=== PATIENT | female | born 1970 | race Caucasian/White ===

== ENCOUNTER 2017-07-09 20:32 | Emergency (ER) | payer BC, OTHER ==
[~2017-07-09] VITALS: Ht 157.5 cm; Wt 97.5 kg
[~2017-07-09 20:32] MED LIST: LISINOPRIL-HCTZ; MECL12.579 PO; TOPROL PO
--- OUTSIDE RECORDS SUMMARY | 2017-07-09 20:39 | XMS REPORT ---
Author Author AJ DUVAL Organization [employer] Address Unknown Phone Unavailable Care Team Providers Care Logistics Officer Name Role Phone MUKUND AJ CP Unavailable Allergies No Known Allergies Problems Problem Type Condition ICD-9 Code Onset Dates Condition Status Problem Special screening examination, human papillomavirus [HPV] V73.81 Active Problem Screening for malignant neoplasm of the cervix V76.2 Active Problem Unspecified breast screening V76.10 Active Problem Other and unspecified noninfectious gastroenteritis and colitis 558.9 Active Problem Other enthesopathy of ankle and tarsus 726.79 Active Problem Hypertension 401.9 Active Problem Unspecified labyrinthitis 386.30 Active Problem Essential hypertension, benign 401.1 Active Problem Dizziness and giddiness 780.4 Active Problem Hypopotassemia 276.8 Active Problem Problems related to lack of physical exercise V69.0 Active Problem Other malaise and fatigue 780.79 Active Assessment Generalized hyperhidrosis 780.8 Active Problem Mastodynia 611.71 Active Problem Obesity, unspecified 278.00 Active Problem Routine gynecological examination V72.31 Active Medications No Known Medications Procedures Procedure Coding System Code Date X-RAY EXAM OF FOOT CPT-4 70806 Jul 16, 2015 Office Visit, Est Pt., Level 3 CPT-4 98459 Jul 16, 2015 Vital Signs Date/Time: Jul 16, 2015 Blood Pressure Diastolic 80 mmHg Blood Pressure Systolic 140 mmHg Height 62 in Results Name Result Date Reference Range Unit Abnormality Flag Xray: Feet, Bilateral (IN HOUSE) Summary Purpose [employer] Submission
--- OUTSIDE RECORDS SUMMARY | 2017-07-09 20:39 | XMS REPORT ---
Author Author ANTHONY HOLLY [employer] Address Unknown Phone Unavailable Care Team Providers Care Micro Computer Specialist Name Role Phone ANTHONY HOLLY CP Unavailable Allergies, Adverse Reactions, Alerts Substance Reaction Event Type N.K.D.A. Info Not Available Non Drug Allergy Problems Problem Type Condition Code Onset Dates Condition Status Problem Essential hypertension, benign 401.1 Active Problem Hypopotassemia 276.8 Active Problem Unspecified labyrinthitis 386.30 Active Problem Knee pain M25.569 Active Problem Foot pain M79.673 Active Problem Essential hypertension I10 Active Problem Other enthesopathy of ankle and tarsus 726.79 Active Problem Dizziness and giddiness 780.4 Active Problem Hypertension 401.9 Active Problem Other and unspecified noninfectious gastroenteritis and colitis 558.9 Active Problem Obesity, unspecified 278.00 Active Problem Problems related to lack of physical exercise V69.0 Active Assessment Dental examination Z01.20 Active Problem Routine gynecological examination V72.31 Active Problem Special screening examination, human papillomavirus [HPV] V73.81 Active Problem Other malaise and fatigue 780.79 Active Problem Unspecified breast screening V76.10 Active Problem Mastodynia 611.71 Active Problem Screening for malignant neoplasm of the cervix V76.2 Active Medications Medication Code System Code Instructions Start Date End Date Status Dosage Marenisco [facility] [address]-88 5-325 MG Orally every 6 hrs Aug 03, 2016 Aug 07, 2016 1 tablet as needed Metoprolol Succinate ER [facility] 12473341099 50 MG TAKE ONE TABLET BY MOUTH DAILY Amoxicillin [facility] [address]-54 500 MG Orally every 8 hrs Aug 03, 2016 Aug 10, 2016 1 capsule Lisinopril-Hydrochlorothiazide [facility] [address]-45 20-12.5 MG Once a day May 07, 2014 take 1 tablet by Oral route 1 time per day Procedures Procedure Coding System Code Date INTRAORL-PERIAPICAL 1 FILM 12984 CPT-4 D0220 Aug 03, 2016 LTD ORAL EVALUATION - PROBLEM FOCUS CPT-4 D0140 Aug 03, 2016 Vital Signs Date/Time: Aug 03, 2016 Blood Pressure Diastolic 93 mmHg Blood Pressure Systolic 145 mmHg Height 62 in Results No Known Results Summary Purpose [employer] Submission
--- OUTSIDE RECORDS SUMMARY | 2017-07-09 20:39 | XMS REPORT ---
Author Author AJ DUVAL Organization [employer] Address Unknown Phone Unavailable Care Team Providers Care Civil Process Server Name Role Phone AJ DUVAL CP Unavailable Allergies No Known Allergies Problems Problem Type Condition Code Onset Dates Condition Status Problem Special [...] giddiness 780.4 Active Problem Hypopotassemia 276.8 Active Assessment Heel spur M77.30 Active Problem Problems related to lack of physical exercise V69.0 Active Problem Other malaise and fatigue 780.79 Active Assessment Tendonitis, Achilles, right M76.61 Active Problem Mastodynia 611.71 Active Problem Obesity, unspecified 278.00 Active Problem Routine gynecological examination V72.31 Active Medications No Known Medications Procedures Procedure Coding System Code Date Office Visit, Est Pt., Level 3 CPT-4 07722 Aug 27, 2015 Vital Signs Date/Time: Aug 27, 2015 Blood Pressure Diastolic 80 mmHg Blood Pressure Systolic 130 mmHg Height 62 in Results No Known Results Summary Purpose [employer] Submission
[2017-07-09] MEDS ORDERED: LISI1TAB8 (20:50)
[2017-07-09] MEDS ORDERED: MELO15TA39 (20:50)
[2017-07-09] MEDS ORDERED: RX-TRIMETH/SULFA. 160-800 MG (BACTRIM DS) TAB PPK#2 PO STA (20:58)
[2017-07-09] MEDS ORDERED: SULF1TAB35 PO (21:01)
--- NOTE | 2017-07-09 21:01 | ED Integumentary General ---
General Chief Complaint: Skin/Wound Problems Stated Complaint: BUMP ON ABDOMEN Nursing Triage Note: c/o 'blood blister' on LLQ Source: patient History of Present Illness Time seen by provider: 20:50 Initial Comments C/O "BLOOD BLISTER" TO LEFT LOWER ABDOMEN--NOTICED JUST PRIOR TO ARRIVAL AND "FREAKED OUT" PT DENIES ANY KNOWN INJURY, BITE, ETC. TO AREA COMPLETELY ASYMPTOMATIC FROM IT. NO HISTORY OF SIMILAR NO EXCESSIVE BRUISING, BLEEDING, ETC FROM ANYWHERE ELSE PCP; [facility] Allergies and Home Medications Allergies Coded Allergies: No Known Drug Allergies (Unverified , 05/03/13) Home Medications Lisinopril/Hydrochlorothiazide 1 Each Tablet, (Reported) Meloxicam 15 Mg Tablet, (Reported) Sulfamethoxazole/Trimethoprim 1 Each Tablet, 1 EACH PO BID, #20 Prescribed by: GEORGETTE CATALAN on 07/09/172100 Constitutional: no symptoms reported Musculoskeletal: no symptoms reported Skin: see HPI Psychiatric/Neurological: No Symptoms Reported Past Pppudqt-Acnxhm-Lldjwz Hx Patient Social History Alcohol Use: Denies Use Recreational Drug Use: No Recent Foreign Travel: No Contact w/Someone Who Travel: No Recent Infectious Disease Expo: No Immunizations Up To Date Tetanus Booster (TDap): Unknown Date of Influenza Vaccine: Sep 05, 2013 Seasonal Allergies Seasonal Allergies: No Surgeries History of Surgeries: Yes (BILATERAL HERNIA REPAIR AGE 3; X 2) Surgeries: Abdominal, Section, Gallbladder, Orthopedic Respiratory History of Respiratory Disorde: No Cardiovascular History of Cardiac Disorders: Yes Cardiac Disorders: Hypertension Neurological History of Neurological Disord: Yes Neurological Disorders: Vertigo Reproductive System Female Reproductive Disorders: Denies Genitourinary History of Genitourinary Disor: No Gastrointestinal History of Gastrointestinal Di: Yes Gastrointestinal Disorders: Gastroesophageal Reflux, Hiatal Hernia Musculoskeletal History of Musculoskeletal Dis: No Endocrine History of Endocrine Disorders: No Cancer History of Cancer: No Psychosocial History of Psychiatric Problem: No Integumentary History of Skin or Integumenta: No Blood Transfusions History of Blood Disorders: No Family Medical History Significant Family History: No Pertinent Family Hx Physical Exam Vital Signs Vital Sign - Last 12Hours 07/09/17 20:46 Temp 97.8 Pulse 87 Resp 18 B/P (MAP) 148/79 Pulse Ox 98 Capillary Refill : Less Than 3 Seconds General Appearance: WD/WN, no apparent distress, obese Cardiovascular: regular rate, rhythm Respiratory: normal breath sounds Gastrointestinal: non tender, soft Neurologic/Psychiatric: no motor/sensory deficits, alert, normal mood/affect Skin: normal color, warm/dry, other (LEFT LOWER ABDOMEN WITH 1 CM "BLOOD BLISTER" --BLISTER IS INTACT BUT VERY FLACCID. HAS A 3 CM SURROUNDING AREA /RIM OF MARKED ERYTHEMA TO SURROUNDING SKIN WITH FAIRLY DISCRETE BORDERS, VERY CIRCULAR. NO INDURATION. NON-TENDER. NO DRAINAGE. NO STREAKS. ) Progress/Results/Core Measures Results/Orders My Orders Orders - GEORGETTE CATALAN DO Rx-Trimeth/Sulfameth Ds Tab (Rx-Bactrim/ (07/09/17 20:58) Vital Signs/I&O Vital Sign - Last 12Hours 07/09/17 07/09/17 20:46 21:06 Temp 97.8 97.8 Pulse 87 87 Resp 18 18 B/P (MAP) 148/79 Pulse Ox 98 98 Blood Pressure Mean: 102 Departure Impression Impression: Primary Impression: Blood blister Disposition: 01 HOME, SELF-CARE Condition: Stable Departure-Patient Inst. Referrals: [facility] (PCP) Primary Care Physician ALEXA FLORES (Family) Primary Care Physician Patient Instructions: Blisters, Cellulitis (Skin Infection), Adult (DC), Wound Care (DC) Add. Discharge Instructions: IF BLISTER RUPTURES, CLEAN TWICE A DAY WITH ANTIBACTERIAL SOAP AND WATER, APPLY TRIPLE ANTIBIOTIC AND FRESH DRESSING TYLENOL AND MOTRIN NEEDED FOR PAIN FOLLOW UP WITH [facility] NEEDED All discharge instructions reviewed with patient and/or family. Voiced understanding. Scripts Sulfamethoxazole/Trimethoprim (Bactrim Ds Tablet) 1 Each Tablet 1 EACH PO BID, #20 TAB Prov: GEORGETTE CATALAN DO 07/09/17 Images Torso/Trunk 1 - GEORGETTE CATALAN DO Jul 09, 2017 21:01
[2017-07-09 21:06] VITALS: BP 148/79
== END 2017-07-09 21:05 | disposition home or self-care (01) ==
LOC: EDUNIT# 20:32 → ER 20:35
DX: R23.8 Other skin changes (principal); K21.9 Gastro-esophageal reflux disease without esophagitis; I10 Essential (primary) hypertension; Z87.59 Personal history of other complications of pregnancy, childbirth and the puerperium
CPT/HCPCS: 99283

== ENCOUNTER 2018-08-27 02:50 | Emergency (ER) | payer OTHER ==
[~2018-08-27] VITALS: Ht 157.5 cm; Wt 93.0 kg
[~2018-08-27 02:50] MED LIST changes: +LISI1TAB8; +MELO15TA39; +SULF1TAB35 PO
--- OUTSIDE RECORDS SUMMARY | 2018-08-27 02:55 | XMS REPORT ---
Author Author JIMBO THIEN Organization [facility] Address [address] [place] [address] Care Team Providers Care Logistics Assistant Name Role Phone THIEN CHOI Unavailable PROBLEMS Type Condition ICD9-CM Code HCT22-TW Code Onset Dates Condition Status SNOMED Code Problem Other and unspecified noninfectious gastroenteritis and colitis 558.9 Active 66291026 Problem Unspecified labyrinthitis 386.30 Active 51932051 Problem Essential hypertension, benign 401.1 Active 4958597 Problem Essential hypertension I10 Active 74003319 Problem Knee pain M25.569 Active 85773003 Problem Hypopotassemia 276.8 Active 60735983 Problem Obesity, unspecified 278.00 Active 878939085 Problem Foot pain M79.673 Active 09462816 Problem Hypertension 401.9 Active 47167234 Problem Unspecified breast screening V76.10 Active 724579272 Problem Special screening examination, human papillomavirus [HPV] V73.81 Active 036726331 Problem Screening for malignant neoplasm of the cervix V76.2 Active 144925488 Problem Other malaise and fatigue 780.79 Active 081232080 Problem Dizziness and giddiness 780.4 Active 688073781 Problem Routine gynecological examination V72.31 Active 862336898076219 Problem Other enthesopathy of ankle and tarsus 726.79 Active 06437568 Problem Problems related to lack of physical exercise V69.0 Active 97045827 Problem Mastodynia 611.71 Active 89833253 ALLERGIES No Known Allergies ENCOUNTERS Encounter Location Date Diagnosis [facility] [id number] [place] [address] May, Fatigue, unspecified type R53.83 ; Acute pharyngitis, unspecified etiology J02.9 and Cough R05 [facility] [address] [id number] [address] Apr, Essential hypertension I10 and Right foot pain M79.671 [facility] [id number] [place] [address] March, [facility] [id number] [place] [id number] Jul, Dental examination Z01.20 [facility] [id number] [place] [address]- [address] March, Back pain M54.9 and Hematuria R31.9 [facility] [address] [address] Dec, [facility] [address] [address] Dec, Essential hypertension I10 ; Knee pain M25.569 and Foot pain M79.673 [facility] [id number] [place] [address] Aug, Tendonitis, Achilles, right M76.61 and Heel spur M77.30 [facility] [id number] [place] [address]- [address] Jul, Generalized hyperhidrosis 780.8 [facility] [id number] [place] [address] 827[address]- 0764 May, Hypertension 401.9 and Foot pain 729.5 [facility] [id number] [place] [address]- [address] 14 Feb, 2015 [facility] [id number] [place] [address]- [address] Feb, [facility] [id number] [place] [address]- 4708 Oct, [facility] [id number] [place] [address]- [address] Oct, [facility] [id number] [place] [address]- [address] Oct, [facility] [id number] [address] Oct, [facility] [place] [facility] [address] [id number] [place] [address] Jun, [facility] [place] [facility] [address] [id number] [place] [address] Jun, [facility] [place] [facility] [address] [id number] [place] [address] Jun, [facility] [place] [facility] [address] [id number] [place] [address] Jun, [facility] [place] [facility] [address] [id number] [place] [address] Jun, [facility] [place] [facility] [address] [id number] [place] [address] May, [facility] [place] [facility] [address] [id number] [place] [address] May, [facility] [place] [facility] [address] [id number] [place] [address] May, [facility] [place] [facility] [address] [id number] [place] [address] May, [facility] [place] [facility] [address] [id number] [place] [address] May, [facility] [place] [facility] [address] [id number] [place] [address] Apr, [facility] [place] [facility] [address] [id number] [place] [address] Apr, [facility] [place] [facility] [address] [id number] [place] [address] Sep, [facility] [place] [facility] [address] [id number] [place] [address] Sep, [facility] [place] [facility] [address] [id number] [place] [address] 33[address] May, [facility] [place] [facility] [address] [id number] [place] [address] May, [facility] [place] [facility] [address] [id number] [place] [address] 4046 May, [facility] [place] [facility] [address] [id number] [place] [address] 4[address] March, [facility] [place] [facility] [address] [id number] [place] [address] Jan, [facility] [place] [facility] [address] [id number] [place] [address] Oct, [facility] [place] [facility] [address] [id number] [place] [address]- [address]36 Oct, [facility] [place] [facility] [address] [id number] [place] [address] 8382 Oct, [facility] [place] [facility] [address] [id number] [place] [address] 0872 Oct, [facility] [place] [facility] [address] [id number] [place] [address] 8752 Oct, [facility] [place] [facility] [address] [id number] [place] [address] Oct, [facility] [place] [facility] [address] [id number] [place] [address] Oct, [facility] [place] [facility] [address] [id number], [place] [address] Sep, [facility] [place] [facility] [address] [id number] [place] [address] Sep, [facility] [place] [facility] [address] [id number] [place] [address] Aug, [facility] [place] [facility] [address] [id number] [place] [address]- [address] Aug, [facility] [place] [facility] [address] [id number] [address] Aug, [facility] [address] [address] Aug, [facility] [address] Aug, [facility] [address] [address] Aug, [facility] [id number] [place] [address] 066829- 3317 Aug, [facility] [id number] [place] [address] 470091- [address] Aug, [facility] [id number] [place] [address] 865751- [address] Aug, [facility] [id number] [place] [address] 16[address]- 0316 Aug, [facility] [address], [place] [address] Jun, [facility] [address] [address] Jan, IMMUNIZATIONS No Known Immunizations SOCIAL HISTORY Never Assessed REASON FOR VISIT sore throat and diarrhea, starting on 05/05. Jasmyn RN PLAN OF CARE Activity Details Follow Up 1-2 weeks if not better Reason:fatigue/cough Pending Test STREP A (IN HOUSE) VITAL SIGNS Height 62 in 2018-05-07 Weight 216.2 lbs 2018-05-07 Temperature 99 degrees Fahrenheit 2018-05-07 Heart Rate 69 bpm 2018-05-07 Respiratory Rate 20 2018-05-07 BMI 39.54 kg/m2 2018-05-07 Blood pressure systolic 136 mmHg 2018-05-07 Blood pressure diastolic 84 mmHg 2018-05-07 MEDICATIONS Medication Instructions Dosage Frequency Start Date End Date Duration Status Meloxicam 15 MG Orally Once a day 1 tablet 24h Active Lisinopril-Hydrochlorothiazide 20-12.5 MG Orally twice a day take 1 tablet by Oral route 1 time per day 12h May, 90 days Active RESULTS No Results PROCEDURES Procedure Date Ordered Result Body Site STREP A ASSAY W/OPTIC May 07, 2018 CULTURE, BACTERIA, OTHER May 07, 2018 LYME DISEASE ANTIBODY May 07, 2018 RICKETTSIA ANTIBODY May 07, 2018 VENIPUNCT, ROUTINE* May 07, 2018 COMPLETE CBC W/AUTO DIFF WBC May 07, 2018 X-RAY EXAM CHEST 2 VIEWS May 07, 2018 COMPREHEN METABOLIC PANEL May 07, 2018 HETEROPHILE ANTIBODIES May 07, 2018 INSTRUCTIONS MEDICATIONS ADMINISTERED No Known Medications MEDICAL (GENERAL) HISTORY Type Description Date Medical History hypertension, benign Surgical History x 2 Surgical History cholecystectomy Surgical History hernia repair Surgical History torn meniscus Hospitalization History surgery
--- OUTSIDE RECORDS SUMMARY | 2018-08-27 02:55 | XMS REPORT ---
Author Author ALEXA FLORES [facility] Address [address] [place] [address] Care Team Providers Care Energy Sales Consultant Name Role Phone ALEXA FLORES Unavailable PROBLEMS Type Condition ICD9-CM Code WHO54-HG Code Onset Dates Condition Status SNOMED Code Problem Other and unspecified noninfectious gastroenteritis and colitis 558.9 Active 71744023 Problem Unspecified labyrinthitis 386.30 Active 92692108 Problem Essential hypertension, benign 401.1 Active 8316739 Problem Essential hypertension I10 Active 16104566 Problem Knee pain M25.569 Active 80079632 Problem Hypopotassemia 276.8 Active 63520782 Problem Obesity, unspecified 278.00 Active 142624870 Problem Foot pain M79.673 Active 77180195 Problem Hypertension 401.9 Active 00397925 Problem Unspecified breast screening V76.10 Active 453015787 Problem Special screening examination, human papillomavirus [HPV] V73.81 Active 267529078 Problem Screening for malignant neoplasm of the cervix V76.2 Active 303541218 Problem Other malaise and fatigue 780.79 Active 534063493 Problem Dizziness and giddiness 780.4 Active 166979986 Problem Routine gynecological examination V72.31 Active 942035702365186 Problem Other enthesopathy of ankle and tarsus 726.79 Active 85984731 Problem Problems related to lack of physical exercise V69.0 Active 60750039 Problem Mastodynia 611.71 Active 30396320 ALLERGIES No Known Allergies ENCOUNTERS Encounter Location Date Diagnosis [facility] [id number] [place] [address] Apr, Essential hypertension I10 and Right foot pain M79.671 [facility] [address] [address] March, [facility] [id number] [place] [id number] Jul, Dental examination Z01.20 [facility] [id number] [place] [address] March, Back pain M54.9 and Hematuria R31.9 [facility] [id number] [place] [address]- [address] Dec, [facility] [address] [address] Dec, Essential hypertension I10 ; Knee pain M25.569 and Foot pain M79.673 [place] [address] [address] Aug, Tendonitis, Achilles, right M76.61 and Heel spur M77.30 [facility] [id number] [place] [address] Jul, Generalized hyperhidrosis 780.8 [facility] [address] [address] May, Hypertension 401.9 and Foot pain 729.5 [facility] [id number] [place] [address]- [address] Feb, [facility] [id number] [place] [address]- [address] Feb, [facility] [id number] [place] [address]- [address] Oct, [facility] [id number] [place] [address]- 2406 Oct, [facility] [address] [address] Oct, [facility] [id number] [place] [address]- [address] Oct, [facility] [id number] [place] [address]- [address] Jun, [facility] [place] [facility] [address] [id number] [place] [address] Jun, [facility] [place] [facility] [address] [id number] [place] [address] Jun, [facility] [place] [facility] [address] [id number] [place] [address] Jun, [facility] [place] [facility] [address] [id number] [place] [address] Jun, [facility] [place] [facility] [address] [id number] [place] [address] May, [facility] [place] [facility] [address] [id number] [place] [address] May, [facility] [place] [facility] [address] [id number] [place] [address] May, [facility] [place] [facility] [address] [id number] [place] [address]- 74[address] May, [facility] [place] [facility] [address] [id number] [place] [address] 1429 May, [facility] [place] [facility] [address] [id number] [place] [address] 77[address] Apr, [facility] [place] [facility] [address] [id number] [place] [address] 7030 Apr, [facility] [place] [facility] [address] [id number] [place] [address]- 8746 Sep, [facility] [place] [facility] [address] [id number] [place] [address]- 5[address] Sep, [facility] [place] [facility] [address] [id number] [place] [address]- 2502 May, [facility] [place] [facility] [address] [id number] [place] [address] 8170 May, [facility] [place] [facility] [address] [id number], [place] [address] May, [facility] [place] [facility] [address] [id number] [place] [address]- 25[address] March, [facility] [place] [facility] [address] [id number] [place] [address]- 7816 Jan, [facility] [place] [facility] [address] [id number] [place] [address] 8996 Oct, [facility] [place] [facility] [address] [id number] [place] [address]- 6[address] Oct, [facility] [place] [facility] [address] [id number] [place] [address]- 1112 Oct, [facility] [place] [facility] [address] [id number] [place] [address] 8697 Oct, [facility] [place] [facility] [address] [id number] [place] [address]- 65[address] Oct, [facility] [place] [facility] [address] [id number] [place] [address]- 4325 Oct, [facility] [place] [facility] [address] [id number] [place] [address] Oct, [facility] [place] [facility] [address] [id number] [place] [address]- 0062 Sep, [facility] [place] [facility] [address] [id number] [place] [address]- 7876 Sep, [facility] [place] [facility] [address] [id number], [place] [address] Aug, [facility] [place] [facility] [address] [id number] [place] [address]- 2052 Aug, [facility] [place] [facility] [address] [id number] [place] Aug, [facility] [place] [facility] [address] [id number] [place] [address] Aug, [facility] [place] [facility] [id number] [address] Aug, [facility] [id number] [address] Aug, [facility] [address], [place] [address]46 Aug, [facility] [address], [place] [address] Aug, [facility] [address], [place] [address]- [address] Aug, [facility] [address], [place] [address] Aug, [facility] [address], [place] [address] Jun, [facility] [address], [place] [address] Jan, IMMUNIZATIONS No Known Immunizations SOCIAL HISTORY Never Assessed REASON FOR VISIT Blood Pressure. Pt was at another physician's office recently and they told her that her b/p was a little elevated. Susanne DIALLO PLAN OF CARE Activity Details Follow Up 6 Months Reason:bp VITAL SIGNS Height 62 in 2017-04-16 Weight 224 lbs 2017-04-16 Temperature 98.2 degrees Fahrenheit 2017-04-16 Heart Rate 86 bpm 2017-04-16 Respiratory Rate 18 2017-04-16 BMI 40.97 kg/m2 2017-04-16 Blood pressure systolic 130 mmHg 2017-04-16 Blood pressure diastolic 82 mmHg 2017-04-16 MEDICATIONS Medication Instructions Dosage Frequency Start Date End Date Duration Status Lisinopril-Hydrochlorothiazide 20-12.5 MG Orally twice a day take 1 tablet by Oral route 1 time per day 12h May, 90 days Active RESULTS No Results PROCEDURES No Known procedures INSTRUCTIONS MEDICATIONS ADMINISTERED No Known Medications MEDICAL (GENERAL) HISTORY Type Description Date Medical History hypertension, benign Surgical History x 2 Surgical History cholecystectomy Surgical History hernia repair Surgical History torn meniscus Hospitalization History surgery
--- OUTSIDE RECORDS SUMMARY | 2018-08-27 02:56 | XMS REPORT | Continuity of Care Document ---
Author Author [facility] Address Unknown Phone Unavailable Allergies Active Description Code Type Severity Reaction Onset Reported/Identified Relationship to Patient Clinical Status Yes No Known Drug Allergies [id number] Drug Allergy Unknown N/A 05/03/2013 Medications There is no data. Problems Date Dx Coded Attending Type Code Diagnosis Diagnosed By 01/12/2011 726.71 Achilles Bursitis Or Tendinitis 01/12/2011 ALEXA FLORES APRN 726.71 Achilles Bursitis Or Tendinitis 01/12/2011 ALEXA FLORES APRN S 726.71 Achilles Bursitis Or Tendinitis 01/12/2011 726.71 Achilles Bursitis Or Tendinitis 01/12/2011 ALEXA FLORES APRN S 726.71 Achilles Bursitis Or Tendinitis 01/12/2011 ASIF ZELAYA DDS 726.71 Achilles Bursitis Or Tendinitis 01/12/2011 KALEE WALLACE DO 726.71 Achilles Bursitis Or Tendinitis 01/12/2011 KALEE WALLACE DO 726.71 Achilles Bursitis Or Tendinitis 01/12/2011 ALEXA FLORES APRN S 726.71 Achilles Bursitis Or Tendinitis 06/19/2012 386.30 LABYRINTHITIS UNSPECIFIED 06/19/2012 401.1 HYPERTENSION, BENIGN ESSENTIAL 06/19/2012 ALEXA FLORES APRN S 386.30 LABYRINTHITIS UNSPECIFIED 06/19/2012 ALEXA FLORES APRN S 401.1 HYPERTENSION, BENIGN ESSENTIAL 06/19/2012 ALEXA FLORES APRN S 386.30 LABYRINTHITIS UNSPECIFIED 06/19/2012 ALEXA FLORES APRN S 401.1 HYPERTENSION, BENIGN ESSENTIAL 06/19/2012 386.30 LABYRINTHITIS UNSPECIFIED 06/19/2012 401.1 HYPERTENSION, BENIGN ESSENTIAL 06/19/2012 SANDRA DICE TABLE PERSON, ALEXA S 386.30 LABYRINTHITIS UNSPECIFIED 06/19/2012 SANDRA LORA, ALEXA S 401.1 HYPERTENSION, BENIGN ESSENTIAL 06/19/2012 WHITE DDS, ASIF J 386.30 LABYRINTHITIS UNSPECIFIED 06/19/2012 WHITE DDS, ASIF J 401.1 HYPERTENSION, BENIGN ESSENTIAL 06/19/2012 WALLACE DO, KALEE K 386.30 LABYRINTHITIS UNSPECIFIED 06/19/2012 WALLACE DO, KALEE K 401.1 HYPERTENSION, BENIGN ESSENTIAL 06/19/2012 WALLACE DO, KALEE K 386.30 LABYRINTHITIS UNSPECIFIED 06/19/2012 WALLACE DO, KALEE K 401.1 HYPERTENSION, BENIGN ESSENTIAL 06/19/2012 SANDRA LORA, ALEXA S 386.30 LABYRINTHITIS UNSPECIFIED 06/19/2012 SANDRA LORA, ALEXA S 401.1 HYPERTENSION, BENIGN ESSENTIAL 08/22/2012 780.79 fatigue 08/22/2012 SANDRA LORA ALEXA S 780.79 fatigue 08/22/2012 SANDRA LORA ALEXA S 780.79 fatigue 08/22/2012 780.79 fatigue 08/22/2012 SANDRA DICE TABLE PERSON, ALEXA S 780.79 fatigue 08/22/2012 WHITE DDS, ASIF J 780.79 fatigue 08/22/2012 WALLACE DO, KALEE K 780.79 fatigue 08/22/2012 WALLACE DO, KALEE K 780.79 fatigue 08/22/2012 SANDRA LORA, ALEXA S 780.79 fatigue 08/29/2012 278.00 OBESITY 08/29/2012 V69.0 LACK OF PHYSICAL EXERCISE 08/29/2012 SANDRA LORA ALEXA S 278.00 OBESITY 08/29/2012 SANDRA LORA, ALEXA S V69.0 LACK OF PHYSICAL EXERCISE 08/29/2012 SANDRA LORA ALEXA S 278.00 OBESITY 08/29/2012 SANDRA LORA ALEXA S V69.0 LACK OF PHYSICAL EXERCISE 08/29/2012 278.00 OBESITY 08/29/2012 V69.0 LACK OF PHYSICAL EXERCISE 08/29/2012 SANDRA LORA ALEXA S 278.00 OBESITY 08/29/2012 SANDRA DICE TABLE PERSON, ALEXA S V69.0 LACK OF PHYSICAL EXERCISE 08/29/2012 WHITE DDS, ASIF J 278.00 OBESITY 08/29/2012 WHITE DDS, ASIF J V69.0 LACK OF PHYSICAL EXERCISE 08/29/2012 WALLACE DO, KALEE K 278.00 OBESITY 08/29/2012 WALLACE DO, KALEE K V69.0 LACK OF PHYSICAL EXERCISE 08/29/2012 WALLACE DO, KALEE K 278.00 OBESITY 08/29/2012 WALLACE DO, KALEE K V69.0 LACK OF PHYSICAL EXERCISE 08/29/2012 SANDRA DICE TABLE PERSON ALEXA S 278.00 OBESITY 08/29/2012 SANDRA DICE TABLE PERSON, ALEXA S V69.0 LACK OF PHYSICAL EXERCISE 05/05/2013 558.9 GASTROENTERITIS NONINFECTIOUS 05/05/2013 SANDRA DICE TABLE PERSON, ALEXA S 558.9 GASTROENTERITIS NONINFECTIOUS 05/05/2013 WHITE DDS, ASIF J 558.9 GASTROENTERITIS NONINFECTIOUS 05/05/2013 WALLACE DO, KALEE K 558.9 GASTROENTERITIS NONINFECTIOUS 05/05/2013 WALLACE DO, KALEE K 558.9 GASTROENTERITIS NONINFECTIOUS 05/05/2013 SANDRA DICE TABLE PERSON, ALEXA S 558.9 GASTROENTERITIS NONINFECTIOUS 05/14/2013 SANDRA DICE TABLE PERSON, ALEXA S 276.8 HYPOPOTASSEMIA 05/14/2013 SANDRATARYN LORA ALEXA S 780.4 DIZZINESS AND VERTIGO 05/14/2013 WHITE DDS, ASIF J 276.8 HYPOPOTASSEMIA 05/14/2013 WHITE DDS, ASIF J 780.4 DIZZINESS AND VERTIGO 05/14/2013 WALLACE DO, KALEE K 276.8 HYPOPOTASSEMIA 05/14/2013 WALLACE DO, KALEE K 780.4 DIZZINESS AND VERTIGO 05/14/2013 WALLACE DO, KALEE K 276.8 HYPOPOTASSEMIA 05/14/2013 WALLACE DO, KALEE K 780.4 DIZZINESS AND VERTIGO 05/14/2013 SANDRA VALENZUELAN ALEXA S 276.8 HYPOPOTASSEMIA 05/14/2013 SANDRA DICE TABLE PERSON ALEXA S 780.4 DIZZINESS AND VERTIGO 05/07/2014 WALLACE DO KALEE K 726.79 OTHER ENTHESOPATHY OF ANKLE AND TARSUS 05/07/2014 WALLACE DO, KALEE K 726.79 OTHER ENTHESOPATHY OF ANKLE AND TARSUS 05/07/2014 SANDRAALEXA CENTENO APRN S 726.79 OTHER ENTHESOPATHY OF ANKLE AND TARSUS 05/20/2014 KALEE WALLACE DO K 611.71 MASTODYNIA 05/20/2014 KALEE WALLACE DO K V72.31 RELIGIOUS EDUCATION COORDINATOR EXAM, ROUTINE 05/20/2014 KALEE WALLACE DO K V73.81 HPV SCREENING 05/20/2014 KALEE WALLACE DO K V76.10 BREAST CANCER SCREENING 05/20/2014 SHALONDA WALLACE DOA K V76.2 CERVICAL CANCER SCREENING (PAP SMEAR) 05/20/2014 SANDRA DICE TABLE PERSON, ALEXA S 611.71 MASTODYNIA 05/20/2014 SANDRA DICE TABLE PERSONDECLAN GarzaNDA S V72.31 RELIGIOUS EDUCATION COORDINATOR EXAM, ROUTINE 05/20/2014 DECLAN FLORES APRNNDA S V73.81 HPV SCREENING 05/20/2014 DECLAN FLORES APRNNDA S V76.10 BREAST CANCER SCREENING 05/20/2014 DECLAN FLORES APRNNDA S V76.2 CERVICAL CANCER SCREENING (PAP SMEAR) 07/09/2017 MEKA, FELIPEMARIELA Hardin APRN Ot 611.71 MASTODYNIA 07/09/2017 GEORGETTE CATALAN DO Ot I10 ESSENTIAL (PRIMARY) HYPERTENSION 07/09/2017 GEORGETTE CATALAN DO Ot K21.9 GASTRO-ESOPHAGEAL REFLUX DISEASE WITHOUT 07/09/2017 GEORGETTE CATALAN DO Ot R23.8 OTHER SKIN CHANGES 07/09/2017 GEORGETTE CATALAN DO Ot Z87.59 PERSONAL HISTORY OF COMP OF PREG, CHLDBR Procedures Code Description Performed By Performed On J2550 PHENERGAN INJECTION UP TO 50 MG 05/05/2013 76503 THERAPUTIC INJ SQ/IM 05/05/2013 75889 MAMMOGRAM DX, STEPHAN 05/20/2014 58895 PAP SMEAR 05/20/2014 Q0091 PAP SMEAR OBTAIN SMEAR 05/20/2014 80692 ROUTINE VENIPUNCTURE 10/23/2014 75840 CBC 10/23/2014 [id number] GFR CALC (RESULT ONLY) 10/23/2014 93237 CMP 10/23/2014 54385 LIPID PANEL 10/23/2014 Results Test Result Range BRUNO SCN SPOTTED FEVER, IgG, IgM - 05/07/18 10:51 RMSF IGG NOT DETECTED NRG RMSF IGM NOT DETECTED NRG Encounters ACCT No. Visit Date/Time Discharge Status Pt. Type Provider Facility Loc./Unit Complaint [id number] 10/23/2014 08:17:00 10/23/2014 23:59:59 CLS Outpatient ALEXA FLORES APRN [id number] 05/20/2014 17:27:00 05/20/2014 23:59:59 CLS Outpatient RODRIGO BARAHONA KALEE Susanne [id number] 05/07/2014 17:40:00 05/07/2014 23:59:59 CLS Outpatient KALEE WALLACE DO Susanne [id number] 01/16/2014 00:00:00 01/16/2014 23:59:59 CLS Outpatient ASIF ZELAYA DDS [id number] 05/14/2013 14:45:00 05/14/2013 23:59:59 CLS Outpatient ALEXA FLORES APRN [id number] 01/23/2013 16:15:00 01/23/2013 23:59:59 CLS Outpatient ALEXA FLORES APRN [id number] 10/10/2012 16:05:00 10/10/2012 23:59:59 CLS Outpatient ALEXA FLORES APRN S [id number] 09/02/2012 08:20:00 09/02/2012 23:59:59 CLS Outpatient [id number] 05/05/2013 12:41:00 Document Registration [id number] 07/09/2017 20:35:00 07/09/2017 21:05:00 DIS Emergency GEORGETTE CATALAN DO [facility] ER BUMP ON ABDOMEN [id number] 06/16/2014 08:00:00 06/16/2014 23:59:59 CLS Outpatient FELIPE ACKERMAN DICE TABLE PERSON [facility] RAD LEFT BREAST PAIN [id number] 09/25/2013 13:33:00 09/25/2013 17:14:00 DIS Emergency [id number] 05/03/2013 03:53:00 05/03/2013 05:34:00 DIS Emergency [id number] 08/27/2018 02:51:00 ACT Emergency DORCAS MOONEY, ANGY Mortensen [facility] ER SORE THROAT,EAR PAIN [id number] 05/07/2018 09:40:00 05/07/2018 23:59:59 CLS Outpatient ALEXA FLORES APRN [facility] [id number] 05/07/2018 09:40:00 Document Registration
[2018-08-27] MEDS ORDERED: methylPREDNISolone 125 MG (Solu-MEDROL) VIAL IVP ONE (04:00)
[2018-08-27] MEDS ORDERED: FAMOTIDINE 20MG/2ML IV (PEPCID) IVP ONE (04:00)
[2018-08-27] MEDS ORDERED: diphenhydrAMINE 50 MG/ML INJ (BENADRYL) IVP ONE (04:00)
[2018-08-27 04:19] LABS: BASOPHILS % (AUTO) 0 % (0-10); EOSINOPHILS # (AUTO) 0.3 10^3/uL (0.0-0.3); EOSINOPHILS % (AUTO) 3 % (0-10); HEMATOCRIT 35 % (35-52); HEMOGLOBIN 11.6 G/DL (11.5-16.0); LYMPHOCYTES # (AUTO) 0.9 X 10^3 (1.0-4.0); LYMPHOCYTES % (AUTO) 11 % (12-44); MEAN CORPUSCULAR HEMOGLOBIN 28 PG (25-34); MEAN CORPUSCULAR HGB CONC 33 G/DL (32-36); MEAN CORPUSCULAR VOLUME 84 FL (80-99); MEAN PLATELET VOLUME 9.4 FL (7.4-10.4); MONOCYTES # (AUTO) 0.7 X 10^3 (0.0-1.0); MONOCYTES % (AUTO) 8 % (0-12); NEUTROPHILS % (AUTO) 78 % (42-75); PLATELET COUNT 230 10^3/uL (130-400); RED BLOOD COUNT 4.21 10^6/uL (4.35-5.85); RED CELL DISTRIBUTION WIDTH 14.8 % (10.0-14.5); WHITE BLOOD COUNT 8.9 10^3/uL (4.3-11.0)
[2018-08-27 04:37] LABS: ALANINE AMINOTRANSFERASE 37 U/L (0-55); ALKALINE PHOSPHATASE 84 U/L (40-136); BILIRUBIN,TOTAL 0.4 MG/DL (0.1-1.0); BUN/CREATININE RATIO 21; CALCIUM 9.1 MG/DL (8.5-10.1); CARBON DIOXIDE 24 MMOL/L (21-32); CHLORIDE 105 MMOL/L (98-107); GFR ESTIMATED > 60; GLUCOSE 94 MG/DL (70-105); POTASSIUM 4.1 MMOL/L (3.6-5.0); SODIUM 139 MMOL/L (135-145); TOTAL PROTEIN 7.4 GM/DL (6.4-8.2)
[2018-08-27] MEDS ORDERED: KETOROLAC 30 MG/ML VIAL IVP ONE (05:00)
[2018-08-27] MEDS ORDERED: cefTRIAXone FOR IV USE 1,000 MG in NS (IVPB) 50 ML IV ONE (05:00)
--- NOTE | 2018-08-27 05:13 | ED General ---
General Chief Complaint: Oral/Throat Problems Stated Complaint: SORE THROAT,EAR PAIN Nursing Triage Note: pt ambulated into the ED, states she has had a sore throat since sunday. today presents to the ed d/t the pain affecting her sleep. Pt verbalizes she feels like she is experiencing drainage when she sleeps Nursing Sepsis Screen: No Definite Risk Source of Information: Patient Exam Limitations: No Limitations History of Present Illness Date Seen by Provider: Aug 27, 2018 Time Seen by Provider: 03:50 Initial Comments This 48-year-old woman presents to the emergency room with complaints of sore throat and earache. She has had some difficulty breathing and felt like she was choking prior to arriving to the ER. She denies any fever, nausea, vomiting , or diarrhea. She has had a little bit of cough. She took Excedrin about 01: 00. She also took NyQuil and cough drops before bed. Symptoms started last night and included some body aches. She has found it extremely difficult to sleep does not believe she has fallen asleep at all this evening. She has notable edema around the uvula and the posterior pharynx. She denies any tongue or lip swelling. She denies any known allergy exposures or new exposures to food, medications or other allergens. Allergies and Home Medications Allergies Coded Allergies: No Known Drug Allergies (Unverified , 05/03/13) Home Medications Sulfamethoxazole/Trimethoprim 1 Each Tablet, 1 EACH PO BID Prescribed by: GEORGETTE CATALAN on 07/09/17 3094 Patient Home Medication List Home Medication List Reviewed: Yes Review of Systems Review of Systems Constitutional: no symptoms reported EENTM: see HPI Respiratory: see HPI Cardiovascular: no symptoms reported Gastrointestinal: no symptoms reported Genitourinary: no symptoms reported : No Musculoskeletal: no symptoms reported Skin: no symptoms reported Psychiatric/Neurological: No Symptoms Reported Hematologic/Lymphatic: No Symptoms Reported Immunological/Allergic: see HPI Past Wuznhkr-Ogfzvm-Bqfado Hx Patient Social History Alcohol Use: Denies Use Recreational Drug Use: No Smoking Status: Never a Smoker Recent Foreign Travel: No Contact w/Someone Who Travel: No Recent Infectious Disease Expo: No Immunizations Up To Date Tetanus Booster (TDap): Unknown PED Vaccines UTD: Yes Date of Influenza Vaccine: Sep 05, 2013 Seasonal Allergies Seasonal Allergies: No Past Medical History Surgeries: Yes (BILATERAL HERNIA REPAIR AGE 3; X 2) Abdominal, Section, Gallbladder, Orthopedic Respiratory: No Cardiac: Yes Hypertension Neurological: Yes Vertigo : No Last Menstrual Period: May 07, 2018 Female Reproductive Disorders: Denies Genitourinary: No Gastrointestinal: Yes Gastroesophageal Reflux, Hiatal Hernia Musculoskeletal: No Endocrine: No HEENT: No Cancer: No Psychosocial: No Integumentary: No Blood Disorders: No Family Medical History No Pertinent Family Hx Physical Exam Vital Signs Vital Signs - First Documented 08/27/18 03:16 Temp 98.3 Pulse 82 Resp 20 B/P (MAP) 169/92 (117) Pulse Ox 98 O2 Delivery Room Air Capillary Refill : Less Than 3 Seconds Height, Weight, BMI Height: 5'2.00" Weight: 205lbs. oz. 92.801639ha; 37.31 BMI Method:Stated General Appearance: No Apparent Distress, WD/WN HEENT: PERRL/EOMI, TMs Normal, Other (watery edema of the posterior pharynx and uvula without exudate. Mild erythema in the right posterior pharynx with increased swelling on that side.) Neck: Normal Inspection, Supple Respiratory: Lungs Clear, Normal Breath Sounds, No Accessory Muscle Use, No Respiratory Distress Cardiovascular: Regular Rate, Rhythm, No Edema, No Murmur Gastrointestinal: Normal Bowel Sounds, Non Tender, Soft Extremity: Normal Inspection, No Pedal Edema Neurologic/Psychiatric: Alert, Oriented x3, No Motor/Sensory Deficits, Normal Mood/Affect, computer security manager II-XII Norm as Tested Skin: Normal Color, Warm/Dry; No Rash Progress/Results/Core Measures Suspected Sepsis Recent Fever Within 48 Hours: No Infection Criteria Present: None New/Unexplained Altered Menta: No Sepsis Screen: No Definite Risk SIRS Temperature:98.3 Pulse: 82 Respiratory Rate: 20 Laboratory Tests 08/27/18 04:14: White Blood Count 8.9 Blood Pressure 169 /92 Mean: 117 Laboratory Tests 08/27/18 04:14: Creatinine 0.80, Platelet Count 230, Total Bilirubin 0.4 Results/Orders Lab Results Laboratory Tests Test 08/27/18 03:50 08/27/18 04:14 Range/Units Group A Streptococcus Screen NEGATIVE NEGATIVE White Blood Count 8.9 4.3-11.0 10^3/uL Red Blood Count 4.21 L 4.35-5.85 10^6/uL Hemoglobin 11.6 11.5-16.0 G/DL Hematocrit 35 35-52 % Mean Corpuscular Volume 84 80-99 FL Mean Corpuscular Hemoglobin 28 25-34 PG Mean Corpuscular Hemoglobin Concent 33 32-36 G/DL Red Cell Distribution Width 14.8 H 10.0-14.5 % Platelet Count 230 130-400 10^3/uL Mean Platelet Volume 9.4 7.4-10.4 FL Neutrophils (%) (Auto) 78 H 42-75 % Lymphocytes (%) (Auto) 11 L 12-44 % Monocytes (%) (Auto) 8 0-12 % Eosinophils (%) (Auto) 3 0-10 % Basophils (%) (Auto) 0 0-10 % Neutrophils # (Auto) 7.0 1.8-7.8 X 10^3 Lymphocytes # (Auto) 0.9 L 1.0-4.0 X 10^3 Monocytes # (Auto) 0.7 0.0-1.0 X 10^3 Eosinophils # (Auto) 0.3 0.0-0.3 10^3/uL Basophils # (Auto) 0.0 0.0-0.1 10^3/uL Sodium Level 139 135-145 MMOL/L Potassium Level 4.1 3.6-5.0 MMOL/L Chloride Level 105 98-107 MMOL/L Carbon Dioxide Level 24 21-32 MMOL/L Anion Gap 10 5-14 MMOL/L Blood Urea Nitrogen 17 7-18 MG/DL Creatinine 0.80 0.60-1.30 MG/DL Estimat Glomerular Filtration Rate > 60 BUN/Creatinine Ratio 21 Glucose Level 94 70-105 MG/DL Calcium Level 9.1 8.5-10.1 MG/DL Corrected Calcium 9.1 8.5-10.1 MG/DL Total Bilirubin 0.4 0.1-1.0 MG/DL Aspartate Amino Transf (AST/SGOT) 26 5-34 U/L Alanine Aminotransferase (ALT/SGPT) 37 0-55 U/L Alkaline Phosphatase 84 40-136 U/L C-Reactive Protein High Sensitivity 1.56 H 0.00-0.50 MG/DL Total Protein 7.4 6.4-8.2 GM/DL Albumin 4.0 3.2-4.5 GM/DL Micro Results Microbiology 08/27/18 Influenza Types A,B Antigen (SUN) - Final, Complete My Orders Orders - ANGY TOSCANO MD Methylprednisolone Sod Succ (Solu-Medrol (08/27/18 04:00) Famotidine Injection (Pepcid Injection) (08/27/18 04:00) Diphenhydramine Injection (Benadryl Inje (08/27/18 04:00) Cbc With Automated Diff (08/27/18 04:00) Comprehensive Metabolic Panel (08/27/18 04:00) Hs C Reactive Protein (08/27/18 04:00) Rapid Strep A Screen (08/27/18 04:00) Influenza A And B Antigens (08/27/18 04:00) Saline Lock/Iv-Start (08/27/18 04:00) Ketorolac Injection (Toradol Injection) (08/27/18 05:00) Ceftriaxone For Iv Use (Rocephin For I (08/27/18 05:00) Dexamethasone Injection (Decadron Inject (08/27/18 06:30) Oxymetazoline 0.05% Nasal [place] (Afrin 0. (08/27/18 09:00) Medications Given in ED Current Medications Medications Dose Ordered Sig/Niko Route Start Time Stop Time Status Last Admin Dose Admin Ceftriaxone Sodium 1000 mg/ Sodium Chloride 50 ml @ 100 mls/hr ONCE ONCE IV 08/27/18 05:00 08/27/18 05:29 DC 08/27/18 05:07 100 MLS/HR Diphenhydramine HCl 25 mg ONCE ONCE IVP 08/27/18 04:00 08/27/18 04:02 DC 08/27/18 04:19 25 MG Famotidine 20 mg ONCE ONCE IVP 08/27/18 04:00 08/27/18 04:02 DC 08/27/18 04:19 20 MG Ketorolac Tromethamine 15 mg ONCE ONCE IVP 08/27/18 05:00 08/27/18 05:01 DC 08/27/18 05:06 15 MG Methylprednisolone Sodium Succinate 125 mg ONCE ONCE IVP 08/27/18 04:00 08/27/18 04:02 DC 08/27/18 04:20 125 MG Vital Signs/I&O 08/27/18 03:16 Temp 98.3 Pulse 82 Resp 20 B/P (MAP) 169/92 (117) Pulse Ox 98 O2 Delivery Room Air Capillary Refill : Less Than 3 Seconds Blood Pressure Mean: 117 Progress Note #1: Time: 05:11 Progress Note On exam patient has a blistery-appearing edema affecting the entire uvula and some of the posterior pharynx. This edema and the appearance of allergic type reaction rather than inflammation. Patient was treated as such with Solu-Medrol , Pepcid, and Benadryl. On reexamination her throat looks similar. She continues to complain of pain. Her throat feels raw like an infection. Rocephin and Toradol were given for further treatment. We will continue to watch her for a while to ensure symptoms do not worsen. Progress Note #2: Time: 06:19 Progress Note Patient is starting to feel some relief of pain and swelling. On exam she still has significant edema in the posterior pharynx, especially around the uvula. She received a full gram of Rocephin. Rapid strep and influenza screening were negative. Patient was also assessed by Dr. Etienne. It is the consensus that at this time we cannot discern if she has an infectious pharyngitis/uvulitis or possibly angioedema of the throat. We will therefore treat her for both conditions. In addition we will have her stop lisinopril as it may be a trigger for angioedema and replace it with amlodipine. Explanation was provided to the patient and she is agreeable to the plan. Patient received dexamethasone 10 mg IV prior to dismissal and Afrin nasal spray 2 sprays in each nostril and 2 sprays in the throat. Departure Impression Primary Impression: Pharyngeal edema Additional Impression: Swollen uvula Disposition: 01 HOME, SELF-CARE Condition: Improved Departure-Patient Inst. Decision time for Depature: 06:22 Referrals: [facility] (PCP) Primary Care Physician ALEXA FLORES (Family) Primary Care Physician Patient Instructions: Angioedema, Sore Throat in Adults Add. Discharge Instructions: Complete your azithromycin antibiotic as prescribed. Take Pepcid (famotidine) 20 mg twice daily as long as you have swelling in your throat. Keep Benadryl (diphenhydramine) on hand and take 50 mg every 4 hours as needed for throat swelling or any other signs of allergic reaction. If you develop difficulty breathing or severe reaction, take the Pepcid and Benadryl immediately and present to the emergency room or call 911. Follow-up with your primary care provider as soon as possible. Stop lisinopril and replace with the prescribed amlodipine. You may use the Afrin spray in the nose and mouth twice daily for the next 3 days to reduce swelling. All discharge instructions reviewed with patient and/or family. Voiced understanding. Scripts Amlodipine Besylate (Amlodipine Besylate) 5 Mg Tablet 5 MG PO DAILY, #30 TAB Prov: ANGY TOSCANO MD 08/27/18 Azithromycin (Azithromycin) 250 Mg Tablet 250 MG PO UD, #6 TAB TAKE 2 TABLETS ON DAY ONE THEN TAKE 1 TABLET DAILY FOR FOUR MORE DAYS Prov: ANGY TOSCANO MD 08/27/18 Work/School Note: Work Release Form Date Seen in the Emergency Department: Aug 27, 2018 Return to Work: Aug 28, 2018 Restrictions: No Restrictions Copy Copies To 1: KALEE WALLACE JOSHUA T MD Aug 27, 2018 05:13
[2018-08-27] MEDS ORDERED: AMLO5TAB7 PO (06:23)
[2018-08-27] MEDS ORDERED: AZIT250T12 PO (06:23)
[2018-08-27] MEDS ORDERED: DEXAMETHASONE 10 MG/ML (DECADRON) 1 ML VIAL IV ONE (06:30)
[2018-08-27 06:37] VITALS: BP 146/82
[2018-08-27] MEDS ORDERED: OXYMETAZOLINE (AFRIN) 0.05% NA 15 ML BTL SCH (09:00)
== END 2018-08-27 06:37 | disposition home or self-care (01) ==
LOC: EDUNIT# 02:50 → ER 02:51
DX: J39.2 Other diseases of pharynx (principal); R22.0 Localized swelling, mass and lump, head; I10 Essential (primary) hypertension; K21.9 Gastro-esophageal reflux disease without esophagitis; Z98.890 Other specified postprocedural states
CPT/HCPCS: 36415; 80053; 85025; 86141; 87430; 87804

== ENCOUNTER 2023-02-06 05:30 | Outpatient (CLI) | payer OTHER ==
[~2023-02-06] VITALS: Ht 157.5 cm; Wt 92.3 kg
[~2023-02-06 05:30] MED LIST changes: +AMLO-250 PO; +AZIT250T12 PO; +LISI1TAB46; -LISI1TAB8; -SULF1TAB35 PO; +SULF1TAB38 PO
[2023-02-06] MEDS ORDERED: CELE100C PO (09:41)
[2023-02-06] MEDS ORDERED: ACET325T49 PO (09:41)
[2023-02-06] MEDS ORDERED: HYDR25TA4 PO (09:41)
[2023-02-06] MEDS ORDERED: AMLO-251 PO (09:41)
[2023-02-06 09:57] VITALS: BP 138/86
[2023-02-06 10:38] LABS: BASOPHILS % (AUTO) 1 % (0-10); EOSINOPHILS # (AUTO) 0.2 10^3/uL (0.0-0.3); EOSINOPHILS % (AUTO) 4 % (0-10); HEMATOCRIT 37 % (35-52); HEMOGLOBIN 12.7 g/dL (11.5-16.0); LYMPHOCYTES # (AUTO) 1.1 10^3/uL (1.0-4.0); LYMPHOCYTES % (AUTO) 25 % (12-44); MEAN CORPUSCULAR HEMOGLOBIN 29 pg (25-34); MEAN CORPUSCULAR HGB CONC 34 g/dL (32-36); MEAN CORPUSCULAR VOLUME 84 fL (80-99); MEAN PLATELET VOLUME 9.8 fL (9.0-12.2); MONOCYTES # (AUTO) 0.3 10^3/uL (0.0-1.0); MONOCYTES % (AUTO) 6 % (0-12); NEUTROPHILS % (AUTO) 64 % (42-75); PLATELET COUNT 232 10^3/uL (130-400); WHITE BLOOD COUNT 4.6 10^3/uL (4.3-11.0)
[2023-02-06 10:39] LABS: BILIRUBIN,URINE NEGATIVE (NEGATIVE); CLARITY,URINE CLEAR; COLOR,URINE YELLOW; GLUCOSE, URINE (UA) NEGATIVE (NEGATIVE); KETONES,URINE NEGATIVE (NEGATIVE); LEUKOCYTE ESTERASE ,URINE TRACE (NEGATIVE); NITRITE,URINE NEGATIVE (NEGATIVE); PH,URINE 6.5 (5-9); PROTEIN,URINE NEGATIVE (NEGATIVE)
[2023-02-06 10:51] LABS: INR 0.9 (0.8-1.4); PROTHROMBIN TIME PATIENT 12.6 SEC (12.2-14.7)
[2023-02-06 10:56] LABS: ALBUMIN 4.1 GM/DL (3.2-4.5); BILIRUBIN,TOTAL 0.4 MG/DL (0.1-1.0); CALCIUM 9.4 MG/DL (8.5-10.1); CREATININE SERUM 0.72 MG/DL (0.60-1.30); POTASSIUM 3.6 MMOL/L (3.6-5.0); TOTAL PROTEIN 7.4 GM/DL (6.4-8.2)
[2023-02-06 11:00] LABS: BACTERIA,URINE TRACE /HPF; RBC,URINE 0-2 /HPF; SQUAMOUS EPITHELIAL CELL,UR RARE /HPF; WBC,URINE 0-2 /HPF
[2023-02-06 11:21] LABS: ERYTHROCYTE SEDIMENTATION RATE 19 MM/HR (0-30)
--- NOTE | 2023-02-06 11:36 | Physical Therapy Pre-Op Eval ---
PT Pre-Surgical Assessment Type of Surgery Type of Surgery: left TKR Prior Level of Function Current Living Status: Alone Locomotion (Upon Admit): Independent, Straight Cane, Front Wheeled Walker PLOF DME: Front Wheeled Walker Subjective Home: Single Level Current Living Status: Alone Entry Into Home: Stairs With Railing Steps Into Home: 3 Motor Control Motor Control: Motor Control WNL ROM ROM: WFL, except focal deficit Strength Strength: WFL Transfers Transfers (B, C, W/C) (FIM): 6 Gait Gait (FIM): 6 Gait Distance (FIM): 6 Distance: 200' Gait Assistive Device: FWW Treatment Rendered Treatment: Patient instructed in assistive device, supported ambulation. Patient instructed in and given written program of ROM and strengthening exercises to be preformed post-op. Patient instructed in movement precautions where applicable. Patient demonstrates understandings of post-operative therapy protocol including gait pattern and exercise program. Pre-operative instruction completed; await physical therapy orders after surgery. Treatment Goal Met: Yes Assessment Goals Acheived: I Ambulation w/ FWW, Understands P-op Precaut, I Post-op Exercises Charges/GCodes Time In: 1030 Time Out: 1040 Total Billed Treatment Time: 10 Total Billed Treatment 1 visit EVLowC 10 min TC SOTO PT Feb 06, 2023 11:36
--- NOTE | 2023-02-06 13:48 | Diagnostic Imaging Report ---
INDICATION: Preoperative evaluation prior to knee surgery. COMPARISON: 09/25/2013. FINDINGS: Frontal and lateral views of the chest demonstrate normal heart size and pulmonary vascularity. The lungs are clear. There are no signs of infiltrate, pleural effusions or pneumothoraces. The visualized osseous structures show no acute abnormalities. IMPRESSION: 1. No acute process. No signs of infiltrates, effusions or pneumothoraces. Dictated by: Dictated on workstation # [id number]
== END 2023-02-06 15:50 ==
LOC: PREOP 05:30
PROVIDERS: ATTEND Orthopaedic Surgery
DX: Z01.818 Encounter for other preprocedural examination (principal); M17.12 Unilateral primary osteoarthritis, left knee
CPT/HCPCS: 36415; 71046; 80053; 81000; 85025; 85610; 85652; 86850; 86900; 86901; 87081; 93005

== ENCOUNTER 2023-02-14 07:58 | Inpatient (IN) | payer OTHER ==
--- NOTE | 2023-02-06 08:08 | HISTORY AND PHYSICAL ---
DATE OF SERVICE: 02/14/2023 This will be for inpatient admission on 02/14/2023 for left total knee arthroplasty. HISTORY: The patient is a 52-year-old female with longstanding progressive left knee pain. She has undergone treatment with injections, anti-inflammatories and rest without relief. Radiographs reveal severe medial and patellofemoral arthrosis with complete loss of joint spaces. Due to functional impairment and failure to improve with conservative measures, the patient elected to proceed with surgical intervention. REVIEW OF SYSTEMS: No chest pain, no shortness of breath. No dysuria. PAST MEDICAL HISTORY: Hypertension. PAST SURGICAL HISTORY: section, cholecystectomy, inguinal herniorrhaphy, left knee arthroscopy. FAMILY HISTORY: Significant for cancer, hypertension. PRIMARY CARE PROVIDER: [facility]. MEDICATIONS: Tylenol, indomethacin, hydrochlorothiazide, amlodipine. ALLERGIES: LISINOPRIL/HYDROCHLOROTHIAZIDE. SOCIAL HISTORY: The patient drinks alcohol socially. Denies tobacco use. PHYSICAL EXAMINATION: GENERAL: The patient is well-developed, well-nourished, in no acute distress. HEENT: Normocephalic, atraumatic. Pupils are equal, round and reactive to light. Oropharynx is clear. NECK: Supple. No lymphadenopathy. LUNGS: Clear to auscultation bilaterally. HEART: Regular rate and rhythm. ABDOMEN: Soft, nontender, nondistended. EXTREMITIES: Her left knee demonstrates varus alignment. She ambulates with an antalgic gait. Range of motion of the left knee is 0/4/9. There is no varus or valgus laxity. Negative anterior and posterior drawer. No skin lesions noted. IMPRESSION: Severe osteoarthritis, left knee. PLAN: Left total knee arthroplasty. The patient will require regular inpatient admission due to comorbidities, need for pain management, need for physical therapy. This will be for admission on [ ]. Job ID: [id number] DocumentID: [id number] Dictated Date: 01/31/2023 12:55:50 Mobility Specialist Date: 01/31/2023 15:23:00 Dictated By: PETRE HENDERSON MD
[~2023-02-14] VITALS: Ht 157.5 cm; Wt 92.3 kg
[2023-02-14] VITALS (11 sets, daily range): BP systolic 107–148; BP diastolic 58–81
[~2023-02-14 07:58] MED LIST changes: +ACET325T49 PO; +AMLO-251 PO; +CELE100C PO; +HYDR25TA4 PO; +NALOXONE 0.4 MG/ML 1 ML (NARCAN) VIAL IV PRN; +ONDANSETRON 4 MG/2 ML (SDV) Z0FRAN IVP PRN; +diphenhydrAMINE 50 MG/ML INJ (BENADRYL) IVP PRN; +morphine PCA 100 MG/100 ML BAG IV PRN
--- OUTSIDE RECORDS SUMMARY | 2023-02-14 08:03 | XMS REPORT ---
Author Author Banner Address Unknown Phone Unavailable Care Team Providers Care Housekeeper And Laundry Assistant Name Role Phone KALEE WALLACE Unavailable PROBLEMS Type Condition ICD9-CM Code GUF11-GB Code Onset Dates Condition S tatus W/U Status Risk SNOMED Code Notes Problem Knee pain M25.569 confirmed 29456253 Problem Essential hypertension I10 confirmed 61817980 Problem Foot pain M79.673 confirmed 23887383 Problem Osteoarthritis of left knee M17.12 confirmed 106917893 Problem Osteoarthritis of left knee M17.9 confirmed 204215634 Problem BMI 37.0-37.9, adult Z68.37 confirmed 117994224 Problem Well woman exam with routine gynecological exam Z01.419 confirmed 412019333 Problem BMI 39.0-39.9,adult Z68.39 confirmed 606870973 Problem BMI 35.0-35.9,adult Z68.35 confirmed 114197289 Problem Other chronic pain G89.29 confirmed 8 8825142 Problem Bilateral primary osteoarthritis of knee M17.0 confirmed [id number] We had a lengthy discussion today regard ing the potential benefits of ALLERGIES Allergen (clinical drug ingredient) Drug/Non Drug Allergy do cumented on EMR Reaction Allergy Type Onset Date Status hydrochlorothiazide / lisinopril Lisinopril-Hydrochlor othiazide([facility] Code:[address]-68) hives Drug Allergy Active ENCOUNTERS from 1969 to 2023-01-28 Encounter Location Date Provider Diagnosis [facility] [id number] [place] [address] Feb, KALEE WALLACE Encounter for immuni zation Z23 IMMUNIZATIONS Vaccine Route Administration Date Status 2nd Dose HRSA MODERNA, COVID-19, 0.5mL IM Intramuscular February Administered COVID-19 Moderna (history) Unknown January 06, 2021 Admin istered PRIVATE SHINGRIX (HERPES ZOSTER-2 DOSE) IM Intramuscular Jan 02, 2023 Administered PRIVATE SHINGRIX (HERPES ZOSTER-2 DOSE) IM Intramuscular January 042021 Administered PRIVATE TDAP (BOOSTRIX) IM Intramuscular January 27, 2022 Adminis tered SOCIAL HISTORY Sex Assigned At : Social History Observation Description Sex Assigned At Unknown Alcohol Screen (Audit-C) Question Answer Notes Did you have a drink containing alcohol in the past year? No Points 0 Interpretation Negative Sexual History Question Answer Notes Had sex in the past 12 months (vaginal, oral, or anal)? No Last menstrual period 04/15/2018 Have you ever had a Sexually transmitted disease? No PHQ2 Question Answer Notes In the last 2 weeks, how often have you had little interest or pleasure in doing things? Not at all In the last 2 weeks, how often have you been feeling down, depressed, or hopeless? Not at all Total PHQ2 Score 0 Tobacco use other than smoking: Question Answer Notes Are you an other tobacco user? No REASON FOR REFERRAL No Information VITAL SIGNS No information MEDICATIONS Medication SIG (Take, Route, Frequency, Duration) Notes Start Da te End Date Status Norvasc 10 MG 1 tablet Orally Once a day Active amLODIPine Besylate 10 MG 1 tablet Orally Once a day Active CeleBREX 100 MG 1 capsule with food Orally Once a day for 30 day s Dec, Active hydroCHLOROthiazide 25 MG 0.5 tablet in the morning Orally Once a day Active Tylenol 8 Hour Arthritis Pain 650 MG 2 tablets as needed Orally ida ry 8 hrs Active PROCEDURES No Information RESULTS No Results REASON FOR VISIT COVID-19 Vaccine Dose 2 MEDICAL (GENERAL) HISTORY Type Description Date Medical History hypertension, benign Surgical History x 2 Surgical History cholecystectomy Surgical History hernia repair Surgical History torn meniscus Hospitalization History surgery Goals Section No Information Health Concerns No Information MEDICAL EQUIPMENT No Information MENTAL STATUS No Information FUNCTIONAL STATUS No Information ASSESSMENTS Encounter Date Diagnosis Assessment Notes Treatment Notes Treatm ent Clinical Notes Feb, Encounter for immunization (ICD-10 - Z23 ) PLAN OF TREATMENT Medication Medication Name Sig Start Date Stop Date CeleBREX 100 MG 1 capsule with food Orally Once a day for 30 day s Dec, Next Appt Details Provider Name:YANNI GIVENS, 02-02 11:00:00 AM, [address] [facility], [id number], [place], [address], Provider Name:SHARON Elizabeth THORNTON, 2023-02-22 0 3:15:00 PM, [address] [facility], [id number], [place], [address], Provider Name:JACKSON DOSS, 05:20:00 PM, [address], [place], [address], Insurance Providers Payer Name Payer Address Payer Phone Insured Name Patient Relati onship to Insured Coverage Start Date Coverage End Date Subscriber Number Group Nu mber Cigna [address] [facility] [id number] Caitlin Garcia Self - patient is the insured [id number] [facility] [address] ATTN DENTAL CLAIMS [facility] [id number] Caitlin Garcia Self - patient is the insured [id number]
--- NOTE | 2023-02-14 08:09 | Progress Note-Pre Operative ---
Pre-Operative Progress Note Date of Available H&P: Feb 06, 2023 Date H&P Reviewed: Feb 14, 2023 Time H&P Reviewed: 08:09 Changes from last HP none Pre-Operative Diagnosis: left knee primary osteoarthritis PETER HENDERSON MD Feb 14, 2023 08:09
--- NOTE | 2023-02-14 08:09 | Progress Note-Post Operative ---
Post-Operative Progess Note Surgeon (s)/Traffic Officer (s) Surgeon PETER HENDERSON MD Traffic Officer: Sanjay Orozco Pre-Operative Diagnosis left knee primary osteoarthritis Post-Operative Diagnosis left knee primary osteoarthritis Procedure & Operative Findings Date of Procedure 02/14/23 Procedure Performed/Findings left total knee arthroplasty Anesthesia Type spinal Estimated Blood Loss Estimated blood loss (mL): minimal Specimens/Packing Specimens Removed none Packing: none PETER HENDERSON MD Feb 14, 2023 08:09
--- NOTE | 2023-02-14 08:11 | D/C HH Face to Face Order ---
D/C Face to Face Orders Reconcile Patient Problems Problems Reviewed?: Yes Instructions for Patient Via [facility], Patient Instructions/FollowUp: three weeks Physician to follow Patient: three weeks Discharge Diet for Home: Regular Diet Patient Data-Allergies,Ht & Wt Patient Allergies: Coded Allergies: lisinopril (Verified Allergy, Severe, Anaphylaxis, 02/06/23) Height (Feet): 5 Height (Inches): 2.00 Weight (Pounds): 205 Home Health Need/Face to Face Date of Face to Face: Feb 14, 2023 Clinical Findings: Muscle weakness, Pain with ambulation, Unsteady gait I have seen Pt [id number]: Yes Discharged To: Home Diagnosis/Conditions: left total knee arthroplasty Patient is Homebound due to: Marilee fall risk due to instabilty, Muscle weakness, Pain w/ambulation Homebound Status Due to the above stated illness, injury or surgical procedure (medical condition or diagnosis) and associated clinical findings, the patient is homebound because of his/her inability to leave home except with aid of a supportive device and/or person AND leaving the home requires a considerable and taxing effort or is medically contraindicated. Pt req the following assistanc: Walker Home Health Nursing Orders Home Health Services Order: Physical Therapy-Evaluate & Treat DCleft knee melanie and apply steri strips 02/28/23 Therapy Orders Therapy Orders: Physical Therapy, PT to assess for OT Therapy Specific Orders: Eval assistive deivces, Teach enviro modifications/safety, Gait training, Increase strength/endurance, Provider maintenance therapy, Restore ROM Certify Stmt I certify that this patient is under my care and that I, a nurse practitioner or a physician; a marketing assistant retail division working with me, had a face to face encounter that - meets the physician face to face encounter requirements with this patient as dated. PETER HENDERSON MD Feb 14, 2023 08:11
[2023-02-14] MEDS ORDERED: INTRA-ARTICULAR IU ONE ×5 (08:15)
[2023-02-14] MEDS ORDERED: CEFUROXIME INJECTION 1,500 MG in NS (IVPB) 50 ML IV ONE (08:15)
[2023-02-14] MEDS: LACTATED RINGERS 1,000 ML IV PRN ×2 (08:53→10:30)
[2023-02-14] MEDS: SENNA W/DOCUSATE (SENOKOT S) TABLET PO SCH ×2 (09:00→19:48)
[2023-02-14] MEDS ORDERED: fentaNYL INJ 100 MCG/2 ML AMP ONE (09:09)
[2023-02-14] MEDS ORDERED: PROPOFOL INJECTION 50 ML IV ONE ×2 (09:09→10:41)
[2023-02-14] MEDS ORDERED: MIDAZOLAM 2 MG/2 ML (VERSED) VIAL ONE (09:55)
[2023-02-14] MEDS ORDERED: TRANEXAMIC ACID 100 MG/ML 10 ML INJECTION ONE (10:25)
[2023-02-14] MEDS ORDERED: ROPIVACAINE 5MG/ML 30ML VIAL ONE (10:25)
--- NOTE | 2023-02-14 11:59 | Progress Note ---
Standard Progress Note Progress Notes/Assess & Plan Date Seen by a Provider: Feb 14, 2023 Time Seen by a Provider: 11:58 Progress/Assessment & Plan post op check spinal in effect readiographs--HW well positioned without fracture LLE--2 plus DP pulse with brisk cap refill s/p L TKA mobilize when able PETER HENDERSON MD Feb 14, 2023 11:59
--- NOTE | 2023-02-14 12:01 | Diagnostic Imaging Report ---
INDICATION: Status post knee replacement COMPARISON: None. FINDINGS: Two views of the left knee were obtained. Expected postoperative changes are seen from left knee total arthroplasty. Femoral and tibial components appear well-seated. There is no evidence of periprosthetic fracture. There is a small amount of subcutaneous emphysema in the soft tissues over the knee. Skin melanie are seen centrally over the anterior aspect of the knee. No unexpected radiopaque foreign bodies are identified. IMPRESSION: Expected postsurgical changes from left knee total arthroplasty, as described above. No unexpected radiopaque foreign bodies. Dictated by: Dictated on workstation # [id number]
[2023-02-14] MEDS ORDERED: ONDANSETRON 4 MG/2 ML (SDV) Z0FRAN ONE (12:14)
--- NOTE | 2023-02-14 14:39 | Physical Therapy Evaluation ---
PT Evaluation-General Medical Diagnosis Admission Date Feb 14, 2023 at 07:58 Medical Diagnosis: LTKA Onset Date: Feb 14, 2023 Therapy Diagnosis Therapy Diagnosis: Gait deficit, strength deficit Height/Weight Height (Feet): 5 Height (Inches): 2.00 Weight (Pounds): 205 Precautions Precautions/Isolations: Fall Prevention, Standard Precautions Weight Bear Status Right Lower Extremity: Right Full Weight Bearing Left Lower Extremity: Left Weight Bearing/Tolerated Referral Physician: Dr. Walters Reason for Referral: Evaluation/Treatment Medical History Reviewed History: Yes Social History Home: Single Level Current Living Status: Spouse Entry Into Home: Stairs With Railing PT Steps Into Home: 3 Prior Prior Level of Function SCALE: Activities may be completed with or without assistive devices. 5-Dnbajhgymg-avdednu completes the activity by him/herself with no assistance from a helper. 5-Set-up or Clean-up Assistance-helper sets up or cleans up; patient completes activity. [place] assists only prior to or following the activity. 4-Supervision or Touching Assistance-helper provides verbal cues and/or touching/steadying and/or contact guard assistance as patient completes activity. Assistance may be provided throughout the activity or intermittently. 3-Partial/Moderate Assistance-helper does LESS THAN HALF the effort. [place] lifts, holds or supports trunk or limbs, but provides less than half the effort. 2-Substantial/Maximal Assistance-helper does MORE THAN HALF the effort. [place] lifts or holds trunk or limbs and provides more than half the effort. 6-Urqjyfkph-afxcbz does ALL the effort. Patient does none of the effort to complete the activity. Or, the assistance of 2 or more helpers is required for the patient to complete the activity. If activity was not attempted, code reason: 7-Patient Refused. 9-Not Applicable-not attempted and the patient did not perform the activity before the current illness, exacerbation or injury. 10-Not Attempted due to Environmental Limitations-(lack of equipment, weather restraints, etc.). 88-Not Attempted due to Medical Conditions or Safety Concerns. Bed Mobility: 6 Transfers (B,C,W/C): 6 Gait: 6 Stairs: 6 Indoor Mobility (Ambulation): Independent Stairs: Independent Prior Devices Use: None PT Evaluation-Current Subjective Patient lying supine in bed upon PT arrival, agreeable to treatment. Rates pain currently at 0/10 Objective Patient Orientation: Person, Place, Time, Situation Attachments: Polar Pack, IV ROM/Strength ROM Lower Extremities Left knee limited due to surgery. All other planes in BLEs WFLs Strength Lower Extremities Left LE N/A. Right LE 5/5 all planes Sensory Vision: Functional Hearing: Functional Sensation Right Lower Extremit: Intact Sensation Left Lower Extremity: Intact Transfers Roll Left to Right (QC): 4 Sit to Lying (QC): 4 Lying to Sitting/Side of Bed(Q: 4 Sit to Stand (QC): 4 Chair/Sto-sk-Bfjkj Xfer(QC): 4 Gait Does the Patient Walk?: Yes Mode of Locomotion: Walk Anticipated Mode of Locomotion: Walk Walk 10 feet (QC): 4 Distance: 15 feet Gait Assistive Device: FWW Balance Sitting Static: Good Sitting Dynamic: Good Standing Static: Fair Standing Dynamic: Fair Assessment/Needs Patient tolerated treatment well. Performs all observed bed mobility and transfers with SBA. Patient ambulates 15 feet with FWW, with CGA and verbal cues for use of the FWW, weight bearing and safety. Patient in chair post treatment with all needs met, nursing notified, call light in reach and family in the room. Rehab Potential: Good Equipment Needs FWW PT Short Term Goals Short Term Goals Time Frame: Feb 14, 2023 PT Assisted Goals Assisted Goals PT Manager Net Goals Time Frame: Mar 03, 2023 Roll Left & Right (QC): 6 Sit to Lying (QC): 6 Lying-Sitting on Side/Bed(QC): 6 Sit to Stand (QC): 6 Chair/Jva-ej-Llpvq Xfer(QC): 6 Toilet Transfer (QC): 6 Does the Patient Walk: Yes Walk 10 feet (QC): 6 Walk 50ft with 2 Turns (QC): 4 Walk 150 ft (QC): 4 1 Step (curb) (QC): 4 4 Steps (QC): 4 PT Plan Problem List Problem List: Activity Tolerance, Functional Strength, Safety, Balance, Gait, Transfer, Bed Mobility, ROM Treatment/Plan Treatment Plan: Continue Plan of Care Treatment Duration: Mar 03, 2023 Frequency: 11 times per week Estimated Hrs Per Day: .25 hour per day Safety Risks/Education Patient Education: Gait Training, Transfer Techniques Teaching Recipient: Patient Teaching Methods: Demonstration, Discussion Response to Teaching: Verbalize Understanding, Return Demonstration Time Time In: 1315 Time Out: 1335 DATE: Feb 14, 2023 Total Billed Treatment Time: 20 Total Billed Treatment Visit, BELÉN CORONA PT Feb 14, 2023 14:39
[2023-02-14] MEDS: NS IV 1000 ML 1,000 ML IV SCH ×2 (15:24→21:36)
[2023-02-14] MEDS: CEFUROXIME INJECTION 750 MG in NS (IVPB) 50 ML IV SCH (19:14)
--- NOTE | 2023-02-14 19:39 | OPERATIVE REPORT ---
DATE OF SERVICE: 02/14/2023 PREOPERATIVE DIAGNOSIS: Left knee primary osteoarthritis. POSTOPERATIVE DIAGNOSIS: Left knee primary osteoarthritis. PROCEDURE: Left total knee arthroplasty. SURGEON: Gold Henderson MD PROFILING MACHINE OPERATOR: Sanjay Orozco, who assisted throughout the procedure and closed the incision. ANESTHESIA: Spinal by Griselda Guerra CRNA. TOURNIQUET TIME: 65 minutes at 300 mmHg. ESTIMATED BLOOD LOSS: Minimal. DRAINS: None. COMPLICATIONS: None. POSTOPERATIVE PLAN: Routine protocol. The patient was transferred to the recovery room awake and stable condition. MATERIALS: MicroPort cemented size 3 femur, cemented size 3 tibia with 10 mm insert and cemented size 29 patellar button. STATEMENT OF MEDICAL NECESSITY: The patient is a 53-year-old female with longstanding progressive left knee pain. Radiographs revealed severe medial and patellofemoral arthrosis. She has undergone treatment with injections, anti-inflammatories and rest without relief. Due to functional impairment and failure to improve with conservative measures, the patient elected to proceed with surgical intervention. DESCRIPTION OF PROCEDURE: After risks and benefits of the procedure were discussed and questions were answered and informed consent was signed and placed on the chart, the operative site was confirmed in the preoperative holding area initialed by surgeon. The patient was then transported to the operating room and after adequate levels of general endotracheal anesthetic were obtained, a timeout was called, confirming the operative site. The left lower extremity was prepped and draped in the usual sterile fashion. With the leg elevated and the knee flexed, tourniquet was inflated to 300 mmHg. Standard anterior approach was utilized. Hemostasis was obtained with cautery. A medial parapatellar arthrotomy was performed, leaving 1 cm cuff on the patella for later reattachment. Portion of the fat pad was resected. A subperiosteal release was performed on the proximal medial tibia. The ACL was resected. The extensor mechanism was extremely tight. Therefore, the patellar cut was made. After resecting the ACL, the intramedullary guide was passed into the femoral canal. The distal cutting block was placed and distal cut was made. The femur sized to a size 3. The 3 cutting block was placed parallel to the epicondylar axis and cuts were made from posterior to anterior. A subperiosteal release was then carefully performed on the posterior distal femur, being careful to stay on the bony surface. The intramedullary guide was then passed into the tibia. The cutting block was placed. The drop tamara transected the intermalleolar axis and the cut was made. The 3 baseplate was placed. The drop tamara transected the intermalleolar axis. This was prepared with the drill and keel punch. The femoral trial was placed, trochlear cut was made and the 10 mm insert was placed. The peg guide was placed on the patella. Peg holes were drilled. The 29 button was placed. The knee was taken through range of motion. Full extension was easily obtained, 115 degrees of flexion was obtained. The patella tracked well. There is no anterior/posterior or medial/lateral laxity in flexion or extension. The trials were removed. The joint was irrigated with pulse lavage. Periarticular block was placed in the posterior capsule, medial and lateral retinaculum extensor mechanism and subcutaneous tissues. The bone ends were irrigated and dried and the tibial baseplate was cemented into position. Excessive cement was removed. The superior surface was irrigated and dried and the polyethylene insert was placed. Distal femur was irrigated and dried and the femoral prosthesis was cemented into position. Excessive cement was removed. The knee was brought out into full extension until cement had cured. The undersurface of the patella was irrigated and dried. The patellar button was cemented into position. Excessive cement was removed. Once the cement had cured, the knee was taken through range of motion. Full extension was easily obtained, 115 of flexion with gravity was obtained only blocked by her posterior soft tissues. The patella tracked well. There is no anterior/posterior or medial/lateral laxity in flexion or extension. The joint was further irrigated with pulse lavage. The arthrotomy was closed with #2 Tevdek in rwtcbb-aq-pstpp interrupted fashion. Knee was flexed. No undue tension was noted at the repair site. Subcutaneous tissues were irrigated using a total of 6 liters throughout the procedure. An 0 Vicryl was used to deep subcutaneous layer, 2-0 Vicryl for the superficial subcutaneous layer, melanie used on the skin. A soft dressing was applied. The tourniquet was deflated and the patient was transported to the recovery room awake and in stable condition. Job ID: [id number] DocumentID: [id number] Dictated Date: 02/14/2023 11:31:54 Wood Grinder Date: 02/14/2023 19:37:00 Dictated By: GOLD HENDERSON MD
[2023-02-15] VITALS (7 sets, daily range): BP systolic 102–159; BP diastolic 64–85
[2023-02-15] MEDS: CEFUROXIME INJECTION 750 MG in NS (IVPB) 50 ML IV SCH (02:11)
[2023-02-15] MEDS: NS IV 1000 ML 1,000 ML IV SCH ×2 (03:39→16:56)
[2023-02-15 05:57] LABS: HEMOGLOBIN 10.9 g/dL (11.5-16.0)
--- NOTE | 2023-02-15 07:46 | Progress Note ---
Standard Progress Note Progress Notes/Assess & Plan Date Seen by a Provider: Feb 15, 2023 Time Seen by a Provider: 07:37 Progress/Assessment & Plan post op check spinal in effect readiographs--HW well positioned without fracture LLE--2 plus DP pulse with brisk cap refill s/p L TKA mobilize when able Final Diagnosis no complaints denies paresthesias Laboratory Tests Test 02/15/23 05:48 Range/Units Hemoglobin 10.9 L 11.5-16.0 g/dL Hematocrit 32 L 35-52 % Vital Signs Date Time Temp Pulse Resp B/P (MAP) Pulse Ox O2 Delivery O2 Flow Rate FiO2 02/15/23 07:22 38.0 88 17 102/66 (78) 95 Room Air 02/15/23 06:47 16 02/15/23 03:21 36.3 87 18 144/64 (90) 96 Room Air 02/14/23 23:25 36.8 78 18 138/63 (88) 98 Room Air 02/14/23 20:41 36.4 73 21 148/81 (103) 99 Room Air 02/14/23 20:37 18 02/14/23 20:00 Room Air 02/14/23 16:00 36.7 78 20 139/70 (93) 96 Room Air 02/14/23 15:41 36.7 20 02/14/23 12:30 Room Air 02/14/23 12:30 37.0 20 119/66 (83) 96 Room Air 02/14/23 12:20 20 120/68 (85) 97 Room Air 02/14/23 12:15 Room Air 02/14/23 12:10 20 120/67 (84) 96 Room Air 02/14/23 12:00 Room Air 02/14/23 12:00 20 120/67 (84) 98 Room Air 02/14/23 11:50 20 107/59 (75) 100 Room Air 02/14/23 11:45 Room Air 02/14/23 11:40 20 109/60 (76) 100 Room Air 02/14/23 11:33 Room Air 02/14/23 11:33 37.4 18 110/58 (75) 100 Room Air 02/14/23 10:37 79 136/74 02/14/23 08:00 37.0 79 18 136/74 (94) 98 Room Air I & O 02/15/23 07:00 Intake Total 3050 ml Balance 3050 ml LLE--dressing intact intact sensation to light touch throughout intact DF and PF of toes and ankle s/p LTKA PT/OT PETER HENDERSON MD Feb 15, 2023 07:46
[2023-02-15] MEDS: ENOXAPARIN INJECTION 30 MG/0.3 ML SYR SC SCH ×2 (07:58→19:41)
[2023-02-15] MEDS: SENNA W/DOCUSATE (SENOKOT S) TABLET PO SCH ×2 (07:59→19:41)
[2023-02-15] MEDS: ASPIRIN E.C. 81 MG (ECOTRIN) TAB PO SCH ×2 (07:59→19:41)
--- NOTE | 2023-02-15 08:57 | Physical Therapy Daily Note ---
PT Daily Note-Current Subjective Patient agrees to PT. Pain Section J - Health Conditions 1. Rarely or not at all 2. Occasionally 3. Frequently 4. Almost constantly 8. Unable to answer Pain Effect on Sleep: 2 Pain Interference with Therapy: 2 Pain Interference w/Day-to-Day: 2 Mental Status Patient Orientation: Normal For Age Attachments: Polar Pack, IV Transfers SCALE: Activities may be completed with or without assistive devices. 8-Qvcbccmqqf-ugarkda completes the activity by him/herself with no assistance from a helper. 5-Set-up or Clean-up Assistance-helper sets up or cleans up; patient completes activity. [place] assists only prior to or following the activity. 4-Supervision or Touching Assistance-helper provides verbal cues and/or touching/steadying and/or contact guard assistance as patient completes activity. Assistance may be provided throughout the activity or intermittently. 3-Partial/Moderate Assistance-helper does LESS THAN HALF the effort. [place] lifts, holds or supports trunk or limbs, but provides less than half the effort. 2-Substantial/Maximal Assistance-helper does MORE THAN HALF the effort. [place] lifts or holds trunk or limbs and provides more than half the effort. 6-Jpwepzczc-dadxsp does ALL the effort. Patient does none of the effort to complete the activity. Or, the assistance of 2 or more helpers is required for the patient to complete the activity. If activity was not attempted, code reason: 7-Patient Refused. 9-Not Applicable-not attempted and the patient did not perform the activity before the current illness, exacerbation or injury. 10-Not Attempted due to Environmental Limitations-(lack of equipment, weather restraints, etc.). 88-Not Attempted due to Medical Conditions or Safety Concerns. Lying to Sitting/Side of Bed(Q: 4 Sit to Stand (QC): 4 Chair/Ykm-fg-Mdlmj Xfer(QC): 4 Toilet Transfer (QC): 4 Weight Bearing Right Lower Extremity: Right Full Weight Bearing Left Lower Extremity: Left Weight Bearing/Tolerated Gait Training Distance: 15' x 2 Walk 10 feet (QC): 4 Gait Assistive Device: FWW patient became light headed requiring to sit to recover/slow antalgic gait sequence Exercises Supine Ex: Ankle pumps, Quad Set, Heel Slides, Straight leg raise Supine Reps: 15 Seated Therapy Exercises: Long arc quads Seated Reps: 15 Assessment Patient progressing with treatment plan. Limited left knee AROM due to pain. PT to increase activity as tolerated by patient. PT Short Term Goals Short Term Goals Time Frame: Feb 14, 2023 PT Senior Living Goals Senior Living Goals PT Senior Living Goals Time Frame: Mar 03, 2023 Roll Left & Right (QC): 6 Sit to Lying (QC): 6 Lying-Sitting on Side/Bed(QC): 6 Sit to Stand (QC): 6 Chair/Jye-xp-Hxlfm Xfer(QC): 6 Toilet Transfer (QC): 6 Does the Patient Walk: Yes Walk 10 feet (QC): 6 Walk 50ft with 2 Turns (QC): 4 Walk 150 ft (QC): 4 1 Step (curb) (QC): 4 4 Steps (QC): 4 PT Plan Treatment/Plan Treatment Plan: Continue Plan of Care Treatment Duration: Mar 03, 2023 Frequency: 11 times per week Estimated Hrs Per Day: .25 hour per day Time Time In: 735 Time Out: 758 DATE: Feb 15, 2023 Total Billed Treatment Time: 23 Total Billed Treatment 1 visit EX 13 min GT 10 min TC SOTO PT Feb 15, 2023 08:57
--- NOTE | 2023-02-15 10:17 | Anesthesia-Regional Post-Op ---
Regional Patient Condition Mental Status: Alert, Oriented x3 Circulation: Same as Pre-Op Headache: Absent Sensation: Full Recovery Motor Block: Absent Post Op Complications Complications None Follow Up Care/Instructions Patient Instructions None needed. Anesthesia/Patient Condition Patient is doing well, no complaints, stable vital signs, no apparent adverse anesthesia problems. No complications reported per nursing. KRISTY TOLENTINO CRNA Feb 15, 2023 10:17
[2023-02-15] MEDS: oxyCODONE/APAP 7.5-325 MG (PERCOCET 7.5) TABLET PO PRN ×3 (13:53→23:30)
--- NOTE | 2023-02-15 14:18 | Physical Therapy Daily Note ---
PT Daily Note-Current Subjective Patient agrees to PT. Pain Numeric Pain Scale: 8 Location: Left Location Body Site: Knee Pain Description: Acute Section J - Health Conditions 1. Rarely or not at all 2. Occasionally 3. Frequently 4. Almost constantly 8. Unable to answer Pain Effect on Sleep: 2 Pain Interference with Therapy: 2 Pain Interference w/Day-to-Day: 2 Mental Status Patient Orientation: Normal For Age Attachments: Polar Pack, IV Transfers SCALE: Activities may be completed with or without assistive devices. 2-Jyodnbqlsd-vrxtsna completes the activity by him/herself with no assistance from a helper. 5-Set-up or Clean-up Assistance-helper sets up or cleans up; patient completes activity. [place] assists only prior to or following the activity. 4-Supervision or Touching Assistance-helper provides verbal cues and/or shantel leroy/steadying and/or contact guard assistance as patient completes activity. Assistance may be provided throughout the activity or intermittently. 3-Partial/Moderate Assistance-helper does LESS THAN HALF the effort. [place] lifts, holds or supports trunk or limbs, but provides less than half the effort. 2-Substantial/Maximal Assistance-helper does MORE THAN HALF the effort. [place] lifts or holds trunk or limbs and provides more than half the effort. 8-Wnwsowicn-ucbmcd does ALL the effort. Patient does none of the effort to complete the activity. Or, the assistance of 2 or more helpers is required for the patient to complete the activity. If activity was not attempted, code reason: 7-Patient Refused. 9-Not Applicable-not attempted and the patient did not perform the activity before the current illness, exacerbation or injury. 10-Not Attempted due to Environmental Limitations-(lack of equipment, weather restraints, etc.). 88-Not Attempted due to Medical Conditions or Safety Concerns. Sit to Lying (QC): 6 Lying to Sitting/Side of Bed(Q: 6 Sit to Stand (QC): 6 Toilet Transfer (QC): 6 Weight Bearing Right Lower Extremity: Right Full Weight Bearing Left Lower Extremity: Left Weight Bearing/Tolerated Gait Training Distance: 225' Walk 10 feet (QC): 6 Walk 50 ft with 2 Turns(QC): 6 Walk 150 ft (QC): 6 Gait Assistive Device: FWW slow, antalgic, steady/reciprocal pattern Exercises Supine Ex: Ankle pumps, Quad Set, Heel Slides, Straight leg raise Supine Reps: 15 Seated Therapy Exercises: Long arc quads Seated Reps: 15 Assessment Patient tolerated increase in activity and returned to bed with polar pack in place. PT encourage patient to perform HEP PRN to increase left knee flexion ROM. Patient voices understanding. PT Short Term Goals Short Term Goals Time Frame: Feb 14, 2023 PT Assisted Goals Utilities Estimator And Drafter Goals PT Utilities Estimator And Drafter Goals Time Frame: Mar 03, 2023 Roll Left & Right (QC): 6 Sit to Lying (QC): 6 Lying-Sitting on Side/Bed(QC): 6 Sit to Stand (QC): 6 Chair/Diq-ft-Uugfq Xfer(QC): 6 Toilet Transfer (QC): 6 Does the Patient Walk: Yes Walk 10 feet (QC): 6 Walk 50ft with 2 Turns (QC): 4 Walk 150 ft (QC): 4 1 Step (curb) (QC): 4 4 Steps (QC): 4 PT Plan Treatment/Plan Treatment Plan: Continue Plan of Care Treatment Duration: Mar 03, 2023 Frequency: 11 times per week Estimated Hrs Per Day: .25 hour per day Time Time In: 1346 Time Out: 1410 DATE: Feb 15, 2023 Total Billed Treatment Time: 24 Total Billed Treatment 1 visit EX 14 min GT 10 min TC SOTO PT Feb 15, 2023 14:17
--- NOTE | 2023-02-15 15:45 | Consultation ---
HPI History of Present Illness: 53 yo F that came in for Left knee replacement. I was asked to see patient for medical consultation. Patient states that she has controlled HTN and she is not taking any other medications. Denies any dx of DM or COPD. Source: patient Exam Limitations: no limitations Date seen by provider: Feb 15, 2023 Time Seen by Provider: 11:35 Attending Physician [place] PCP Admitting Physician: Gold Walters MD Attending Physician: Gold Walters MD Consult Date of Admission Feb 14, 2023 at 07:58 Home Medications Home Medications Reviewed patient Home Medication Reconciliation performed by pharmacy medication reconciliations dictaphone technician and/or nursing. Patients Allergies have been reviewed. Allergies Coded Allergies: lisinopril (Verified Allergy, Severe, Anaphylaxis, 02/06/23) OSG-Vjmxby-Rwbczr Hx Patient Social History Smoking Status: Never a Smoker 2nd Hand Smoke Exposure: Yes Recent Hopitalizations: No Immunizations Up To Date Tetanus Booster (TDap): Less than 5yrs First/Initial COVID19 Vaccinat: COVID X 1 DATE UNKNOWN Past Medical History Left knee osteoarthritis HTN Obesity Family Medical History Significant Family History: No Pertinent Family Hx Review of Systems ([facility]) Constitutional: no symptoms reported; No chills, No fever, No malaise, No weakness EENTM: no symptoms reported; No mouth pain, No nose congestion, No nose pain, No throat pain Respiratory: no symptoms reported; No cough, No dyspnea on exertion, No short of breath Cardiovascular: no symptoms reported; No chest pain, No edema, No palpitations Gastrointestinal: no symptoms reported; No abdominal pain, No constipation, No diarrhea, No nausea, No vomiting Genitourinary: no symptoms reported; No dysuria, No frequency Musculoskeletal: joint pain, muscle pain Skin: no symptoms reported Psychiatric/Neurological: No Symptoms Reported Reviewed Test Results Reviewed Test Results Lab Laboratory Tests Test 02/15/23 05:48 Range/Units Hemoglobin 10.9 L 11.5-16.0 g/dL Hematocrit 32 L 35-52 % Physical Exam-([facility]) Physical Exam Vital Signs VS - Last 72 Hours, by Label 02/14/23 02/14/23 02/14/23 02/14/23 08:00 10:37 11:33 11:33 Temp 37.0 37.4 Pulse 79 79 Resp 18 18 B/P (MAP) 136/74 (94) 136/74 110/58 (75) Pulse Ox 98 100 O2 Delivery Room Air Room Air Room Air 02/14/23 02/14/23 02/14/23 02/14/23 11:40 11:45 11:50 12:00 Resp 20 20 20 B/P (MAP) 109/60 (76) 107/59 (75) 120/67 (84) Pulse Ox 100 100 98 O2 Delivery Room Air Room Air Room Air Room Air 02/14/23 02/14/23 02/14/23 02/14/23 12:00 12:10 12:15 12:20 Resp 20 20 B/P (MAP) 120/67 (84) 120/68 (85) Pulse Ox 96 97 O2 Delivery Room Air Room Air Room Air Room Air 02/14/23 02/14/23 02/14/23 02/14/23 12:30 12:30 15:41 16:00 Temp 37.0 36.7 36.7 Pulse 78 Resp 20 20 20 B/P (MAP) 119/66 (83) 139/70 (93) Pulse Ox 96 96 O2 Delivery Room Air Room Air Room Air 02/14/23 02/14/23 02/14/23 02/14/23 20:00 20:37 20:41 23:25 Temp 36.4 36.8 Pulse 73 78 Resp 18 21 18 B/P (MAP) 148/81 (103) 138/63 (88) Pulse Ox 99 98 O2 Delivery Room Air Room Air Room Air 02/15/23 02/15/23 02/15/23 02/15/23 03:21 06:47 07:22 07:59 Temp 36.3 38.0 Pulse 87 88 Resp 18 16 17 B/P (MAP) 144/64 (90) 102/66 (78) Pulse Ox 96 95 95 O2 Delivery Room Air Room Air Room Air 02/15/23 02/15/23 08:53 11:21 Temp 38.0 37.0 Pulse 88 82 Resp 17 18 B/P (MAP) 102/66 (78) 147/85 (105) Pulse Ox 95 97 O2 Delivery Room Air Room Air Capillary Refill : Less Than 3 Seconds General Appearance: WD/WN, no apparent distress, obese HEENT: PERRL/EOMI Neck: non-tender, full range of motion, supple Respiratory: chest non-tender, lungs clear, normal breath sounds, no respirator y distress, no accessory muscle use Cardiovascular: normal peripheral pulses, regular rate, rhythm, no edema, no murmur Gastrointestinal: normal bowel sounds, non tender, soft Back: no CVA tenderness, no vertebral tenderness Extremities: normal range of motion, normal inspection, normal capillary refill, other (Stockings in place with polar ice on left) Neurologic/Psychiatric: auto bumper straightener II-XII nml as tested, alert, oriented x 3 Skin: normal color, warm/dry Lymphatic: no adenopathy Assessment/Plan Assessment/Plan (1) Osteoarthritis of left knee Status: Chronic Assessment & Plan: - POD #1, doing well, having moderate pain, up with PT today, managed by primary team Qualifiers: Qualified Codes: M17.12 - Unilateral primary osteoarthritis, left knee (2) HTN (hypertension) Status: Chronic Assessment & Plan: - Restarted home meds Qualifiers: Qualified Codes: I10 - Essential (primary) hypertension (3) BMI 37.0-37.9, adult Status: Chronic ALEXA MORRISON MD Feb 15, 2023 15:45
--- NOTE | 2023-02-16 00:59 | DISCHARGE SUMMARY ---
DIAGNOSES: 1. Left knee primary osteoarthritis. 2. Hypertension. PROCEDURE: Left total knee arthroplasty. SUMMARY: The patient is a 52-year-old female who underwent a left total knee arthroplasty on the day of admission. Postoperatively, she did well. At time of discharge, her wound was clean and dry. She had no calf tenderness. Negative Homans sign. She was tolerating diet well and tolerating pain with oral pain medication. CONDITION AT DISCHARGE: Good. DISCHARGE DIET: Regular. Followup in 3 weeks. ACTIVITIES: Weightbearing as tolerated with a walker. Home therapy versus outpatient physical therapy will be arranged. MEDICATIONS: Home medications, one aspirin per day for 30 days and Percocet as needed for pain. Job ID: [id number] DocumentID: [id number] Dictated Date: 02/15/2023 07:51:00 Snuff Packing Machine Operator Date: 02/16/2023 00:57:00 Dictated By: PETER HENDERSON MD
[2023-02-16] MEDS: oxyCODONE/APAP 7.5-325 MG (PERCOCET 7.5) TABLET PO PRN ×2 (03:38→08:06)
[2023-02-16] MEDS: NS IV 1000 ML 1,000 ML IV SCH (03:38)
[2023-02-16 03:40] VITALS: BP 158/73
[2023-02-16 06:03] LABS: HEMOGLOBIN 10.1 g/dL (11.5-16.0)
[2023-02-16] MEDS ORDERED: morphine INJ 4 MG/ML 1 ML (VIAL/SYRINGE) IVP PRN (07:00)
--- NOTE | 2023-02-16 07:02 | Progress Note ---
Standard Progress Note Progress Notes/Assess & Plan Date Seen by a Provider: Feb 16, 2023 Time Seen by a Provider: 06:54 Progress/Assessment & Plan post op check spinal in effect readiographs--HW well positioned without fracture LLE--2 plus DP pulse with brisk cap refill s/p L TKA mobilize when able Final Diagnosis feeling better Vital Signs Date Time Temp Pulse Resp B/P (MAP) Pulse Ox O2 Delivery O2 Flow Rate FiO2 02/16/23 05:57 16 02/16/23 03:40 37.6 93 18 158/73 (101) 96 Room Air 02/15/23 23:30 36.7 87 20 159/72 (101) 97 Room Air 02/15/23 23:22 Room Air 02/15/23 20:00 Room Air 02/15/23 19:32 18 02/15/23 19:08 37.8 81 18 145/66 (92) 96 Room Air 02/15/23 15:40 37.0 73 18 136/68 (90) 97 Room Air 02/15/23 11:21 37.0 82 18 147/85 (105) 97 Room Air 02/15/23 08:53 38.0 88 17 102/66 (78) 95 Room Air 02/15/23 07:59 95 Room Air 02/15/23 07:22 38.0 88 17 102/66 (78) 95 Room Air I & O 02/16/23 07:00 Intake Total 3380 ml Balance 3380 ml Laboratory Tests Test 02/16/23 05:43 Range/Units Hemoglobin 10.1 L 11.5-16.0 g/dL Hematocrit 30 L 35-52 % LLE--incision clean and dry no calf tenderness neg Vonnie's s/p LTKA doing well DC after PT today PETER HENDERSON MD Feb 16, 2023 07:02
[2023-02-16 07:58] VITALS: BP 146/78
[2023-02-16] MEDS: ASPIRIN E.C. 81 MG (ECOTRIN) TAB PO SCH (08:06)
[2023-02-16] MEDS: SENNA W/DOCUSATE (SENOKOT S) TABLET PO SCH (08:06)
[2023-02-16] MEDS: ENOXAPARIN INJECTION 30 MG/0.3 ML SYR SC SCH (08:07)
--- NOTE | 2023-02-16 08:35 | Physical Therapy Daily Note ---
PT Daily Note-Current Subjective Patient agrees to PT. Pain Numeric Pain Scale: 4 Location: Left Location Body Site: Knee Pain Description: Acute Section J - Health Conditions 1. Rarely or not at all 2. Occasionally 3. Frequently 4. Almost constantly 8. Unable to answer Pain Effect on Sleep: 2 Pain Interference with Therapy: 2 Pain Interference w/Day-to-Day: 2 Mental Status Patient Orientation: Normal For Age Transfers SCALE: Activities may be completed with or without assistive devices. 1-Ycqormttnk-mbqdorj completes the activity by him/herself with no assistance from a helper. 5-Set-up or Clean-up Assistance-helper sets up or cleans up; patient completes activity. [place] assists only prior to or following the activity. 4-Supervision or Touching Assistance-helper provides verbal cues and/or touching/steadying and/or contact guard assistance as patient completes activity. Assistance may be provided throughout the activity or intermittently. 3-Partial/Moderate Assistance-helper does LESS THAN HALF the effort. [place] lifts, holds or supports trunk or limbs, but provides less than half the effort. 2-Substantial/Maximal Assistance-helper does MORE THAN HALF the effort. [place] lifts or holds trunk or limbs and provides more than half the effort. 5-Xgfhahhdz-afwpev does ALL the effort. Patient does none of the effort to complete the activity. Or, the assistance of 2 or more helpers is required for the patient to complete the activity. If activity was not attempted, code reason: 7-Patient Refused. 9-Not Applicable-not attempted and the patient did not perform the activity before the current illness, exacerbation or injury. 10-Not Attempted due to Environmental Limitations-(lack of equipment, weather restraints, etc.). 88-Not Attempted due to Medical Conditions or Safety Concerns. Lying to Sitting/Side of Bed(Q: 6 Sit to Stand (QC): 6 Chair/Kht-go-Kuifn Xfer(QC): 6 Toilet Transfer (QC): 6 Weight Bearing Right Lower Extremity: Right Full Weight Bearing Left Lower Extremity: Left Weight Bearing/Tolerated Gait Training Distance: 200' x 2 Walk 10 feet (QC): 6 Walk 50 ft with 2 Turns(QC): 6 Walk 150 ft (QC): 6 Walking 10ft/uneven surface-QC: 6 Gait Assistive Device: FWW safe and functional/minimal bilateral knee flexion due to OA Stair Training Stair Training: Handrails/: 1 handrail, uses walker #of Steps: 4 1 Step (curb) (QC): 4 4 Steps (QC): 4 Stairs: Pattern: Step to Exercises Supine Ex: Ankle pumps, Quad Set, Heel Slides, Straight leg raise Supine Reps: 15 Seated Therapy Exercises: Long arc quads Seated Reps: 15 Assessment Patient continues to display minimal bilateral knee flexion due to arthritis. Patient educated on performing HEP PRN upon dismissal to home. Patient voices understanding. Patient to dismiss to home on this date. PT Short Term Goals Short Term Goals Time Frame: Feb 14, 2023 PT [facility] Goals Ride Operator Goals PT Ride Operator Goals Time Frame: Mar 03, 2023 Roll Left & Right (QC): 6 Sit to Lying (QC): 6 Lying-Sitting on Side/Bed(QC): 6 Sit to Stand (QC): 6 Chair/Grr-pu-Duimb Xfer(QC): 6 Toilet Transfer (QC): 6 Does the Patient Walk: Yes Walk 10 feet (QC): 6 Walk 50ft with 2 Turns (QC): 4 Walk 150 ft (QC): 4 1 Step (curb) (QC): 4 4 Steps (QC): 4 PT Plan Treatment/Plan Treatment Plan: Discontinue PT, goals met Treatment Duration: Mar 03, 2023 Frequency: 11 times per week Estimated Hrs Per Day: .25 hour per day Time Time In: 720 Time Out: 743 DATE: Feb 16, 2023 Total Billed Treatment Time: 23 Total Billed Treatment 1 visit EX 13 min FA 10 min TC SOTO PT Feb 16, 2023 08:35
[2023-02-16] MEDS ORDERED: amLODIPine 10 MG (NORVASC) TAB PO SCH (09:00)
[2023-02-16 09:59] VITALS: BP 146/78
--- NOTE | 2023-02-16 11:18 | Progress Note ---
Subjective Subjective/Events-last exam Patient doing well this AM. Up walking around the room with walker. Tolerating PO diet. BM last night. Review of Systems General: No Fatigue, No Malaise Pulmonary: No Dyspnea Cardiovascular: Edema; No: Chest Pain, Palpitations Neurological: Weakness, Incoordination Objective Exam Last Set of Vital Signs Vital Signs Date Time Temp Pulse Resp B/P (MAP) Pulse Ox O2 Delivery O2 Flow Rate FiO2 02/16/23 09:59 37.0 89 18 146/78 97 Room Air Capillary Refill : Less Than 3 Seconds I&O Intake and Output 02/16/23 00:00 Intake Total 3330 ml Balance 3330 ml Intake Oral 2280 ml IV Total 1050 ml # Voids 8 General: Alert, Oriented X3, No Acute Distress Lungs: Clear to Auscultation, Normal Air Movement Heart: Regular Rate, No Murmurs Extremities: Other (Compression stockings in place) Neuro: Normal Speech Psych/Mental Status: Mental Status NL, Mood NL Results/Procedures Lab Laboratory Tests 02/16/23 05:43: Hemoglobin 10.1L, Hematocrit 30L Microbiology 02/14/23 MRSA Screen - Final, Complete MRSA not isolated Assessment/Plan Assessment/Plan (1) Osteoarthritis of left knee Status: Chronic Assessment & Plan: - POD #1, doing well, having moderate pain, up with PT today, managed by primary team 02/16: POD#2, ready to go home, pain well controlled, to be D/bernardo with HH Qualifiers: Qualified Codes: M17.12 - Unilateral primary osteoarthritis, left knee (2) HTN (hypertension) Status: Chronic Assessment & Plan: - Restarted home meds 02/16: Well controlled, patient to f.u with PCP when done with Qualifiers: Qualified Codes: I10 - Essential (primary) hypertension (3) BMI 37.0-37.9, adult Status: Chronic ALEXA MORRISON MD Feb 16, 2023 11:18
== END 2023-02-16 10:30 | disposition home health service (06) | DRG 470 ==
LOC: 4TH 07:58 → SURG 07:59 → 4TH 13:30
PROVIDERS: ADMIT Orthopaedic Surgery; ATTEND Orthopaedic Surgery
PROC: 0SRD0J9 Replacement of Left Knee Joint with Synthetic Substitute, Cemented, Open Approach (ICD-10-PCS; principal; 2023-02-14 10:19)
DX: M17.12 Unilateral primary osteoarthritis, left knee (principal); I10 Essential (primary) hypertension; E66.9 Obesity, unspecified; Z68.37 Body mass index [BMI] 37.0-37.9, adult
CPT/HCPCS: 36415; 73560; 85014; 85018; 87081; 94664